=== PATIENT | male | born 1950 | race Caucasian/White ===

== ENCOUNTER 2023-08-14 09:32 | Outpatient (OUT) | payer MEDICARE, SELFPAY ==
[2023-08-14 10:58] LABS: Prostate Specific Antigen Dx <0.13 ng/mL (<=4.00)
== END 2023-08-14 09:33 | disposition home or self-care (01) ==
LOC: LAB 09:36
PROVIDERS: Urology; PCP Internal Medicine; Visit Provider Nurse Practitioner Women's Health
DX: Z85.46 Personal history of malignant neoplasm of prostate (principal)
CPT/HCPCS: 36415; 84153

== ENCOUNTER 2024-07-24 10:28 | Outpatient (OUT) | payer MEDICARE, SELFPAY ==
[2024-07-24 12:58] LABS: Prostate Specific Antigen Dx <0.13 ng/mL (<=4.00)
== END 2024-07-24 10:29 | disposition home or self-care (01) ==
LOC: LAB 10:32
PROVIDERS: PCP Internal Medicine; Visit Provider Urology
DX: Z85.46 Personal history of malignant neoplasm of prostate (principal)
CPT/HCPCS: 36415; 84153

== ENCOUNTER 2024-12-04 09:44 | Outpatient (OUT) | payer MEDICARE, OTHER, SELFPAY ==
--- OUTSIDE RECORDS SUMMARY | 2024-12-04 10:07 | XMS_ITS | CCD ---
Author Organization [facility] Care Team Providers Care Size Stamper Name Role Phone AMANUEL DIGGS Attending Unavailable RUDDY, DR ELVIS Rivera Admitting Unavailable RUDDY, DR ELVIS Rivera Attending Unavailable RANDAL, DR DELCID Primary Care Unavailable RUDDY, DR ELVIS Rivera Consulting Unavailable RICARDO JONES Primary Care Physician Herberth Tyson Attending Unavaila Herberth Gomes Admitting Unavaila Ricardo Orellana Primary Care Unavailable Elvis FOX Attending Unavailable Elvis FOX Attending Unavailable Ricardo Jones MD Unavailable Ricardo Jones MD Primary Care Provider RICARDO JONES Attending Unavailable RICARDO JONES Attending Unavailable Allergies Allergy Classification Reported Allergen(s) Allergy Type Date of Onset Reaction(s) Facility (4 sources) Penicillins; Translations: [penicillins] Drug allergy (disorder) 3 Unknown (qualifier value) [facility] Repository (3 sources) Sulfonamides (Antibiotic); Translations: [sulfa drugs] Drug allergy Weal (disorder), Cutaneous eruption (morphologic abnormality) [facility] (1 source) Penicillins Drug allergy (disorder) 8 [facility] Repository (6 sources) Penicillin G Drug Allergy 3 Unknown [facility] Work Phone: (4 sources) Sulfonamides (Antibiotic) Drug Allergy 4 [facility] Medications Current Medications Medication Drug Class(es) Dates Sig (Normalized) Sig (Original) [id number] 200 actuat albuterol 0.09 mg/actuat metered dose inhaler (8 sources) beta2-Adrenergic Agonist Start: 09-14-2022 take 2 puff(s) by inhalation every six hours albuterol HFA 90 mcg/act inhaler Inhale 2 puffs every 6 (six) hours if needed. 09/14/2022 Active Start: 04-06-2020 albuterol Refi lls(s) 0 Start Date: 04/06/20 Status: Ordered atorvastatin 40 mg oral tablet (10 sources) HMG-CoA Reductase Inhibitor Start: 04-22-2024 End: 11-19-2025 take 1 tablet by mouth once daily atorvastatin (Lipitor) 40 MG tablet Indications: Mixed hyperlipidemia (CMS/HCC) Take 1 tablet (40 mg) by mouth 1 (one) time each day at the same time 90 tablet 3 11/19/2024 11/19/2025 Active Start: 04-06-2020 Lipitor Refill s(s) 0 Start Date: 04/06/20 Status: Ordered Blood Glucose Monitoring Suppl (D-Care Glucometer) w/Device kit (6 sources) Blood Glucose Monitoring Suppl (D-Care Glucometer) w/Device kit TEST BLOOD SUGARS TWO TIMESA DAY bid (before breakfast and supper) for 90 days Active gabapentin 300 mg oral capsule (10 sources) Anti-epileptic Agent Start: 04-22-2024 End: 11-19-2025 take 1 capsule by mouth in the morning, then take 1 capsule by mouth in the evening, then take 1 capsule by mouth at bedtime gabapentin (Neurontin) 300 MG capsule Indications: 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 Take before meals. 90 tablet 3 11/19/2024 11/19/2025 Active Start: 04-06-2020 glimepiride 4 mg, Refills(s) 0 Start Date: 04/06/20 Status: Ordered losartan potassium 50 mg oral tablet (8 sources) Angiotensin 2 Receptor Jered Start: 04-22-2024 End: 11-19-2025 take 1 tablet by mouth in the morning losartan (Cozaar) 50 MG tablet Indications: Benign essential hypertension (CMS/HCC) Take 1 tablet (50 mg) by mouth in the morning and 1 tablet (50 mg) before bedtime. 180 tablet 3 11/19/2024 11/19/2025 Active 24 hr metoprolol succinate 25 mg extended release oral tablet (10 sources) beta-Adrenergic Jered Start: 04-22-2024 End: 11-19-2025 take 1 tablet by mouth once daily metoprolol succinate XL (Toprol-XL) 25 MG 24 hr tablet Indications: Supraventricular premature beats Take 1 tablet (25 mg) by mouth Daily 90 tablet 3 11/19/2024 11/19/2025 Active Start: 04-06-2020 Toprol-XL Refi lls(s) 0 Start Date: 04/06/20 Status: Ordered traMADol hydrochloride 50 mg oral tablet (6 sources) Opioid Agonist Start: 08-17-2024 End: 12-30-2024 take 1 tablet by mouth every six hours for pain traMADol (Ultram) 50 MG tablet Indications: Degeneration of intervertebral disc of lumbosacral region with discogenic back pain Take 1 tablet (50 mg) by mouth every 6 (six) hours if needed for severe pain 90 tablet 11/30/2024 12/30/2024 Active Start: 04-06-2020 tramadol 25 mg , Refills(s) 0 Start Date: 04/06/20 Status: Ordered Diovan (2 sources) Angiotensin 2 Receptor Jered Start: 04-06-2020 Diovan Refills(s) 0 Start Date: 04/06/20 Status: Ordered Completed/Discontinued Medications Medication Drug Class(es) Dates Sig (Normalized) Sig (Original) 14fr straight catheter (2 sources) Start: 08-24-2024 14fr straight catheter 14fr straight catheter, See Instructions, 30 EA, 3, Pt to CIC 2x/ wk., [facility] #72, Supply, 167, cm, 08/24/24 8:12:00 EDT, Height/Length Dosing, 96, kg, 08/24/24 8:12:00 EDT, Weight Dosing Start Date: 08/24/24 Status: Ordered Start: 04-15-2020 14fr straight catheter 14fr straight catheter, See Instructions, 30 EA, 3, Pt to CIC 2x/ wk., [employer] #72, Supply, 167, cm, 04/15/20 9:20:00 EDT, Height/Length Measured, 102.9, kg, 04/15/20 9:20:00 EDT, Weight Measured Start Date: 04/15/20 Status: Ordered Problems Active Problems Problem Classification Problem Date Documented Date Episodic/Chronic Asthma (6 sources) Mild intermittent asthma; Translations: [Mild intermittent asthma, uncomplicated] Onset: 05-02-2023 05-02-2023 Chronic Cancer of prostate (6 sources) Malignant tumor of prostate; Translations: [Malignant neoplasm of prostate] Onset: 05-02-2023 05-02-2023 Chronic Cancer of prostate (13 sources) Personal history of malignant neoplasm of prostate; Translations: [History of malignant neoplasm of prostate] Onset: 08-05-2020 Episodic Cardiac dysrhythmias (8 sources) Supraventricular premature beats; Translations: [Atrial premature depolarization] Onset: 05-02-2023 05-02-2023 Chronic Chronic kidney disease (6 sources) Chronic kidney disease stage 2; Translations: [Chronic kidney disease, stage 2 (mild)] Onset: 05-02-2023 05-02-2023 Chronic Diabetes mellitus with complications (8 sources) Type 2 diabetes mellitus; Translations: [Type 2 diabetes mellitus with diabetic polyneuropathy] Onset: 05-02-2023 05-02-2023 Chronic Disorders of lipid metabolism (10 sources) Hyperlipidemia; Translations: [Mixed hyperlipidemia] Onset: 05-02-2023 04-15-2020 Chronic Essential hypertension (16 sources) Hypertensive disorder; Translations: [Benign essential hypertension] Onset: 05-02-2023 04-06-2020 Chronic Genitourinary symptoms and ill-defined conditions (12 sources) Nocturia; Translations: [Retention of urine] Onset: 11-13-2024 04-06-2020 Episodic Hyperplasia of prostate (8 sources) Benign prostatic hypertrophy with outflow obstruction; Translations: [Benign prostatic hyperplasia with lower urinary tract symptoms] Onset: 04-13-2022 Chronic Immunizations and screening for infectious disease (4 sources) Patient encounter status; Translations: [Encounter for immunization] 11-19-2024 Episodic Other diseases of bladder and urethra (2 sources) Submeatal urethral stricture; Translations: [Unspecified urethral stricture, male, meatal] Onset: 04-13-2022 Episodic Other diseases of bladder and urethra (6 sources) Male urethral stricture; Translations: [Unspecified urethral stricture, male, meatal] Onset: 11-13-2024 04-06-2020 Episodic Other diseases of kidney and ureters (1 source) Urinary tract obstruction; Translations: [Other obstructive and reflux uropathy] Onset: 04-13-2022 Episodic Other screening for suspected conditions (not mental disorders or infectious disease) (2 sources) Elevated cholesterol/high density lipoprotein ratio 04-06-2020 Episodic Screening and history of mental health and substance abuse codes (6 sources) Ex-smoker; Translations: [Personal history of nicotine dependence] Onset: 11-13-2024 04-06-2020 Episodic Spondylosis; intervertebral disc disorders; other back problems (10 sources) Degeneration of intervertebral disc; Translations: [Degeneration of lumbosacral intervertebral disc] Onset: 05-02-2023 04-06-2020 Chronic Past or Other Problems Problem Classification Problem Date Documented Da te Episodic/Chronic Abdominal hernia (10 sources) Hiatal hernia; Translations: [Diaphragmatic hernia without obstruction or gangrene] Onset: 05-02-2023 04-06-2020 Episodic Mycoses (6 sources) Pityriasis versicolor; Translations: [Pityriasis versicolor] Onset: 05-02-2023 05-02-2023 Episodic Results Test Name Value Interpretation Reference Range Facility Laboratory - Hematology and Cell countson 11-19-2024 HbA1c (Bld) [Mass fraction] 6.1 % [facility] No Panel Informationon 11-19 Interpretation and review of laboratory results Normal [facility] tagWALLETcar e Ambulatory Visit Summaryon 0 08-24-2024 Ambulatory Visit Summary Ambulatory Visit Summary DAVID GIFFORD :1950 Visit Date:08/24/2024 Ambulatory Visit Instructions Your Diagnosis Personal history of prostate cancer BPH with urinary obstruction 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 Discharge Vitals Heart Rate (Peripheral) 68 Respiratory Rate 16 Blood Pressure 122/84 Height 167 cm Height 66 in Weight 96 kg Weight 211.2 lb BMI 34.42 What to do next Scheduled Follow-Up Appointments Saturday 8:45 AM EDT With: Elvis FOX MD Where: [facility] 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 Unchanged albuterol Contact prescribing physician if questions or concerns Unchanged atorvastatin (Lipitor) Contact prescribing physician if questions or concerns Unchanged gabapentin (Neurontin) 300 Milligram Contact prescribing physician if questions or concerns Unchanged glimepiride 4 Milligram Contact prescribing physician if questions or concerns Unchanged metoprolol (Toprol-XL) Contact prescribing physician if questions or concerns Unchanged tramadol 25 Milligram Contact prescribing physician if questions or concerns Unchanged valsartan (Diovan) Contact prescribing physician if questions or concerns Allergies sulfa drugs (Hives, Rash) penicillins (Unknown) Problems Ongoing - Any problem that you are currently receiving treatment for. 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 Degenerative disc disease Elevated cholesterol/high density lipoprotein ratio Hiatal hernia Hypertension Patient Survey You may receive a survey via text or e-mail asking about your office visit. Please share your experience with us by completing your survey. We appreciate your feedback and thank you for choosing us for your care. Education Materials Cancer Screening for Males A cancer screening is a test or exam that checks for cancer. Work with your health care provider to create a cancer screening schedule that protects your health. Who should have screening? All people who are male should be considered for screening of certain cancers, including colorectal cancer, prostate cancer, lung cancer, and skin cancer. Your health care provider may recommend screenings for other types of cancer if: ? You have had cancer before. ? You have a family member with cancer. ? You have genes that could increase the risk of cancer. ? You have risk factors for certain cancers, such as current or past use of tobacco products or being overweight. What are the benefits of screening? Cancer screening is done to look for cancer in the very early stages, before it spreads and becomes harder to treat and before you would start to notice symptoms. Finding cancer early improves the chances of successful treatment. It may save your life. When should I be screened for cancer? When you should be screened for cancer depends on: ? Your age. ? Your medical history and your family's medical history. ? Certain lifestyle factors, such as smoking or other use of tobacco products. ? Environmental exposure, such as to asbestos. How is screening done? Colorectal cancer Colorectal cancer screening looks for cancer or for growths called polyps that often form before cancer starts. Tests to look for cancer or polyps include: ? Colonoscopy or flexible sigmoidoscopy. For these procedures, a flexible tube with a small camera is inserted into the rectum. ? CT colonography. This test uses X-rays and a contrast dye to check the colon for polyps. Tests to look for cancer in the stool (feces) include: ? Guaiac-based fecal occult blood test (FOBT). This test can find blood in stool. It can be done at h (more content not included)... Normal [facility] Urology Office/Clinic Noteon 08-24-2024 Urology Office/Clinic Note Urology Office/Clinic Note Chief Complaint 1 year follow up with PSA HPI Staff 1 yr with PSA. Previous Dx: BPH with obstruction, hx of prostate ca, urethral meatal stricture (does CIC 2x/wk). Self caths with no issues. Pt needs a new Rx for 14 telugu straight caths written out for him to take to pharmacy. S/P TRUS/bx 08/15/10, brachytherapy. Cysto/UD 05/08/18. *No urologic meds. PSA: 03/13/22 - 0.23 08/14/23 - <0.13 07/24/24 - <0.13 Dysuria: denies Incomplete bladder emptying: denies Hematuria: denies visible blood Frequency: denies Urgency: denies Nocturia: once a night Stream: denies hesitancy, has a strong stream Leaking: denies Post void dripping: denies Wearing pads/ Depends: denies Urge incontinence: denies Stress incontinence: denies Incontinence without Sensory Awareness: denies Abdominal pain: denies Flank pain: denies Sexual complaints: _ History of Present Illness Tests reviewed: UA, PSA I have reviewed the previous health record information and history for this patient from Dr. Fox. I have reviewed and verified the staff HPI to be accurate for this encounter. Review of Systems PHQ Score Initial Depression Screen Score: 0 SCORE ROS - Provider Constitutional: denies weight loss, denies hot flashes. Eyes: denies eye problems. Gastrointestinal: denies nausea, denies vomiting. Cardiovascular: denies chest pain or angina. Integumentary: no dryness Musculoskeletal: denies musculoskeletal symptoms. ENMT: denies otolaryngeal symptoms. Respiratory: no shortness of breath. Heme/Lymph: denies easy bleeding tendency, denies easy bruising tendency. Psychiatric: no confusion, no anxiety. Genitourinary: See HPI. Physical Exam Vitals & Measurements HR: 68(Peripheral) RR: 16 BP: 122/84 HT: 66 in HT: 167 cm WT: 96 kg WT: 211.2 lb BMI: 34.42 General Appearance: alert, no distress, well nourished, well developed male. Prostate: very small, barely palpable, no nodules. Assessment/Plan 1. Personal history of prostate cancer (Z85.46: Personal history of malignant neoplasm of prostate) PSA: 03/03/21 - 0.29 03/13/22 - 0.23 08/14/23 - <0.13 07/24/24 - <0.13 S/p TRUS/bx 08/15/10, brachytherapy. PSA remains low and stable. Will cont to monitor. No longer following with radiation. MARTINA - very small, barely palpable, no nodules. Follow up 1 yr with PSA or sooner if needed. Pt understands and agrees with plan. 2. BPH with urinary obstruction (N40.1: Benign prostatic hyperplasia with lower urinary tract symptoms) IPSS not completed (5). Not taking any BPH meds. 3. 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 UA shows trace-intact blood and small leuks. Pt does CIC 2x/wk. No issues. 14 Fr straight refilled to [facility]. Overall patient is doing well. Twice daily straight cath working for him. Refill sent for 180 catheters to be utilized as cath twice per week. 3 refills. PSA level remains near 0 at 0.13 and stable status post prostate brachytherapy. MARTINA is as noted. Follow-up 1 year. No changes Follow-up With When Contact Information RUDDY HUTCHINSON, Elvis Rivera, URL [address] [address]- Additional Instructions: 1 yr with PSA Patient Education Cancer Screening for Males I, Preethi Graham, personally scribed for Dr. Fox on 08/24/2024 08:37:04. . Documentation recorded by the scribe, Preethi Graham, accurately reflects the services(s) I performed and decisions made by me. Authenticated by Dr. Fox on 08/24/2024 08:38:13. Portions of this record may have been created with voice recognition artificial intelligence software, specifically [email or web address], [employer] and or [email or web address]. Substitutions may have occurred due to the inherent limitations of voice recognition and artificial intelligence software. 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 Medications 14fr straight catheter, See Instructions, 3 refills albuterol Diovan glimepiride, 4 mg Lipitor Neurontin, 300 mg Toprol-XL tramadol, 25 mg Allergies sulfa drugs (Hives, Rash) penicillins (Unknown) Social History Alcohol - Denies Alcohol Use, 04/15/2020 Tobacco quit 15 years ago Tobacco Use:. Never Smokeless Tobacco Use:. Cigarettes, 08/24/2024 Family History Congenita (more content not included)... Normal [facility] Comment on above: Result Comment: Elec tronically Signed By: Elvis FOX MD\.br\Date and Time Signed: 08/24/24 08:39 EDT\.br\Electronically Co-Signed By: Preethi Graham\.br\Date and Time Co-Signed: 08/24/24 08:37 EDT MHPT PSA, DIAGNOSTICon 07-24 PROSTATE SPECIFIC ANTIGEN DX <0.13 NINF - 4.00 ng/mL [facility] e Vital Signs Date Time Vital Sign Value Performing Clinician Facility 11-19-2024 09:08-0500 Body height 166.4 cm Ricardo Jones MD Work Phone: [facility] 11-19-2024 09:08-0500 Body mass index (BMI) [Ratio] 34.25 kg/m2 Ricardo Jones MD Work Phone: [facility] 11-19-2024 09:08-0500 Body weight 94.8 kg Ricardo Jones MD Work Phone: [facility] 11-19-2024 09:08-0500 Diastolic blood pressure 82 mm[Hg] Ricardo Jones MD Work Phone: [facility] 11-19-2024 09:08-0500 Heart rate 81 /min Ricardo Jones MD Work Phone: [facility] 11-19-2024 09:08-0500 SaO2% (BldA) [Mass fraction] 96 % Ricardo Jones MD Work Phone: [facility] 11-19-2024 09:08-0500 Systolic blood pressure 132 mm[Hg] Ricardo Jones MD Work Phone: [facility] 08-24-2024 08:08-0400 Blood Pressure Location Elvis FOX [facility] 08-24-2024 08:08-0400 Diastolic blood pressure 84 mm[Hg] Elvis FOX [facility] 08-24-2024 08:08-0400 Heart rate 68 /min Elvis FOX [facility] 08-24-2024 08:08-0400 Respiratory rate 16 /min Elvis FOX [facility] 08-24-2024 08:08-0400 Systolic blood pressure 122 mm[Hg] Elvis FOX [facility] 04-13-2022 11:13-0400 Blood Pressure Location Elvis FOX [facility] 04-13-2022 11:13-0400 Diastolic blood pressure 89 mm[Hg] Elvis FOX [facility] 04-13-2022 11:13-0400 Heart rate 82 /min Elvis FOX [facility] 04-13-2022 11:13-0400 Systolic blood pressure 142 mm[Hg] Elvis FOX [facility] Encounters Encounter Date Encounter Type Care Provider Facility Start: 08-23-2025 ambulatory Elvis FOX Facility :[facility]: 11-30-2024 End: 11-30-2024 Refill Katrina Saturday [employer] Work Phone: [facility] Comment on above: Degeneration of inte rvertebral disc of lumbosacral region with discogenic back pain (Primary Dx) Start: 11-19-2024 End: 11-19-2024 Bamboo flowsheet Ricardo Jones MD Work Phone: [facility] Start: 11-19-2024 End: 11-19-2024 Bamboo flowsheet Ricardo Jones MD Work Phone: [facility] Start: 11-19-2024 End: 11-19-2024 Assay of hemosiderin, quant Ricardo Jones MD Work Phone: [facility] Work Phone: Start: 11-19-2024 End: 11-19-2024 Patient encounter procedure Ricardo Jones MD Work Phone: [facility] Comment on above: Routine general medi john examination at health care facility (Primary Dx); ACP (advance care planning); 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); Mixed hyperlipidemia (CMS/HCC); Benign essential hypertension (CMS/HCC); Supraventricular premature beats; Encounter for vaccination Start: 11-19-2024 End: 11-19-2024 ambulatory RICARDO JONES Not Available Start: 08-24-2024 End: 08-24-2024 ambulatory Elvis FOX Facility:[facility] Start: 08-24-2024 End: 08-24-2024 Patient encounter procedure Elvis FOX [facility] Start: 08-17-2024 End: 08-17-2024 Refill Katrina Saturday [employer] Work Phone: [facility] Comment on above: Degeneration of lumb ar or lumbosacral intervertebral disc (Primary Dx) Start: 07-24-2024 End: 07-24-2024 [facility] Result Encounter Generic External Data Provider [facility] Unsolicited Start: 07-24-2024 End: 07-24-2024 [facility] Result Encounter Generic External Data Provider [facility] Unsolicited Start: 04-22-2024 End: 04-22-2024 ambulatory RICARDO JONES Not Available Start: 04-13-2022 End: 04-13-2022 Patient encounter procedure Elvis FOX [facility] Start: 03-13-2022 End: 03-14-[address] ELVIS FOX Facility: Start: 08-05-2020 End: 08-06-2020 ambulatory Herberth Charlessaige Facility:[facility] Start: 03-05-2019 Patient encounter procedure AMANUEL DIGGS Facility:[id number] Procedures Date Procedure Procedure Detail Performing Clinician Start: 11-19-2024 Hemoglobin glycosylated a1c Ricardo Jones MD Work Phone: Start: 07-24-2024 MHPT PSA, DIAGNOSTIC Ge neric External Data Provider Start: 03-13-[address] MODESTA FOX Comment on above: Performed By: #### P SAD #### [facility] [address] [place] [address] Dr. Deepa Barros Start: 05-08-2018 Cystourethroscopy wi dilation of urethral stricture Elvis FOX Start: 07-25-2015 Colonoscopy Generic Pr ovider Start: 08-15-2010 Ultrasonography guid ed transrectal cryoablation of prostate Elvis FOX Brachytherapy Elvis FOX Esophageal hiatus he rnia repair Elvis FOX Plan of Treatment Date Care Activity Detail Author Start: 06-11-2026 Glaucoma screening Diabetes: R etinopathy Screening [facility] Start: 07-25-2025 Screening for malign ant neoplasm of colon [facility] Start: 05-20-2025 End: 05-20-2025 Patient encounter procedure 05/20/2025 8:30 AM EDT Office Visit [facility] [address] [place] [id number] Ricardo Jones MD [address] [facility] [address] [place] [address] [facility] Start: 02-17-2025 Hemoglobin A1c measurement Diabetes: Hemoglobin A1C [facility] Start: 11-19-2024 End: 11-19-2025 Comprehensive metabolic 2000 panel - Serum or Plasma Comprehensive metabolic panel Lab Routine 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) Benign essential hypertension (CMS/HCC) Expected: 11/19/2024 (Approximate), Expires: 11/19/2025 [facility] Work Phone: Comment on above: Expected: 11/19/2024 (Approximate), Expires: 11/19/2025 Start: 11-19-2024 End: 11-19-2025 Lipid 1996 panel - Serum or Plasma Lipid panel Lab Routine Mixed hyperlipidemia (CMS/HCC) Expected: 11/19/2024 (Approximate), Expires: 11/19/2025 [facility] Comment on above: Expected: 11/19/2024 (Approximate), Expires: 11/19/2025 Start: 11-19-2024 End: 11-19-2025 TSH W/REFLEX TO FT4 TSH W/REFLEX TO FT4 Lab Routine 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) Supraventricular premature beats Expected: 11/19/2024 (Approximate), Expires: 11/19/2025 [facility] Comment on above: Expected: 11/19/2024 (Approximate), Expires: 11/19/2025 Start: 11-19-2024 End: 11-19-2024 Patient encounter procedure 11/19/2024 9:00 AM EST Office Visit [facility] [address] [facility] [address] [place] [phone] Ricardo Jones MD [address] [facility] [address] [place] [address] Arrived [facility] Comment on above: Arrived Start: 10-23-2024 Urine screening for protein Diabetes: Urine Protein Screening [facility] Start: 10-16-2024 End: 10-16-2024 Patient encounter procedure 10/16/2024 8:30 AM EST Office Visit [facility] [address] [facility] [address] [place] [address] Ricardo Jones MD [address] [facility] [address] [place] [address] [facility] Start: 07-26-2024 Influenza vaccination Influenza Vacc ine (#1) [facility] Start: 07-23-2024 Hemoglobin A1c measurement Diabetes: Hemoglobin A1C [facility] Start: 1950 Screening for malign ant neoplasm of colon [facility] Microalbumin/Creatin ine panel in random Urine Microalbumin / creatinine urine ratio Lab Routine 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) Ordered: 11/19/2024 [facility] Comment on above: Ordered: 11/19/2024 Immunizations Immunization Date Immunization Notes Care Provider Fa cility 11-19-2024 Influenza, High-dose Seasonal, Quadrivalent, Preservative Free Ricardo Jones MD Work Phone: [facility] 10-23-2023 influenza virus vacc ine, unspecified formulation Generic Provider [facility] 10-23-2023 Influenza, High-dose Seasonal, Quadrivalent, Preservative Free Generic Provider [facility] 12-11-2022 SARS-CoV-2 (COVID-19 ) [id number] Elvischastity FOX [facility] 09-14-2022 influenza virus vacc ine, unspecified formulation Elvis RUDDY [facility] 09-14-2022 Influenza, High-dose Seasonal, Quadrivalent, Preservative Free Generic Provider [facility] 09-21-2021 influenza virus vacc ine, unspecified formulation Elvis FOX [facility] 09-21-2021 influenza, high dose seasonal, preservative-free Generic Provider [facility] 08-25-2021 SARS-CoV-2 (COVID-19 ) mRNA BNT-162b2 vax Elvis FOX Envia Lá [facility] Comment on above: Result Comment: 2023: [id number] 01-27-2021 SARS-CoV-2 (COVID-19 ) mRNA-1273 vaccine Elvis [employer] [facility] 01-06-2021 SARS-CoV-2 (COVID-19 ) mRNA-1273 vaccine Elvis [employer] [facility] 10-04-2020 influenza virus vacc ine, unspecified formulation Elvis [employer] [facility] 10-04-2020 Influenza, High-dose Seasonal, Quadrivalent, Preservative Free Generic Provider [facility] 08-31-2020 pneumococcal conjuga te vaccine, 13 valent Generic Provider [facility] 08-31-2020 zoster vaccine recombinant Generic Provider [facility] 12-26-2019 influenza virus vacc ine, unspecified formulation Elvis [employer] [facility] 09-08-2018 influenza virus vacc ine, unspecified formulation Elvis [employer] [facility] 08-11-2018 pneumococcal polysaccharide vaccine, 23 valent Generic Provider [facility] Payers Date Payer Category Payer Private Health Insurance [employer] [id number] 2021 Unknown [employer] [id number] 2021-Present [address] [place] [address] [id number] 2017 Self-pay 2016 Medicare [id number] 1959 Medicare [id number] 1959 Unknown [id number] 1959 Unknown [id number] 1951 Unknown [id number] 1951 Unknown [id number] 1951 Unknown [id number] 1951 Unknown [id number] 1951 Unknown [id number] 1951 Unknown [id number] Unknown [id number] Social History Date Type Detail Facility Start: 03-03-2021 Tobacco smoking status Ex-smoker (fi nding) [facility] Start: 08-19-2023 End: 11-19-2024 Sex Assigned At Male [facility] Start: 08-24-2024 Tobacco smoking status Never [facility] Start: 05-02-2023 Tobacco smoking stat us INIS Never smoked tobacco [facility] Start: 05-02-2023 Tobacco use and exposure Smokeless tobacco non-user [facility] Start: 04-22-2024 End: 11-19-2024 Alcoholic beverage intake Lifetime non-drinker (finding) [facility] Start: 08-19-2023 End: 11-19-2024 History of Social function [facility] Within the last year , have you been afraid of your partner or ex-partner? No [facility] Are you now , , , , never or living with a partner? [facility] How often to you hav e a drink containing alcohol? Never [facility] Do you feel stress - tense, restless, nervous, or anxious, or unable to sleep at night because your mind is troubled all the time - these days [OSQ] Not at all [facility] (I/We) worried wheth er (my/our) food would run out before (I/we) got money to buy more. Never true [facility] Start: 1950 Sex assigned at Not on file [facility] Functional Status Date Assessment Result Facility 08-24-2024 Functional Status N/A [facility] Clinical Notes 04-13-2022 to 11-30-2024 Telephone Encounter - DEJON Guallpa - 11/30/2024 11:27 AM ESTTelephone Encounter - DEJON Guallpa - 11/30/2024 11:27 AM Tori Jones MD - 11/19/2024 9:00 AM EST Note Date & Type Note Facility 11-30-2024 Telephone encounter Note OAR[facility] reviewed, Rx sent into patient's pharmacy. [facility] 11-30-2024 Miscellaneous Notes OARRS reviewed, Rx sent into patient's pharmacy. documented in this encounter [facility] 11-19-2024 History of Presen t illness Narrative Images from the original note were not included. Subjective : Chief Complaint: David Gifford is an 74 y.o. male here for an annual wellness visit. I have reviewed and reconciled the history and medication list with the patient today. Current Outpatient Medications Medication Sig Dispense Refill albuterol HFA 90 mcg/act inhaler Inhale 2 puffs every 6 (six) hours if needed. atorvastatin (Lipitor) 40 MG tablet Take 1 tablet (40 mg) by mouth 1 (one) time each day at the same time 90 tablet 3 Blood Glucose Monitoring Suppl ([employer] Glucometer) w/Device kit TEST BLOOD SUGARS TWO TIMESA DAY bid (before breakfast and supper) for 90 days gabapentin (Neurontin) 300 MG capsule Take 1 capsule (300 mg) by mouth in the morning and 1 capsule (300 mg) in the evening and 1 capsule (300 mg) before bedtime. 270 capsule 3 glimepiride (Amaryl) 4 MG tablet Take 1 tablet (4 mg) by mouth in the morning. Take before meals. 90 tablet 3 losartan (Cozaar) 50 MG tablet Take 1 tablet (50 mg) by mouth in the morning and 1 tablet (50 mg) before bedtime. 180 tablet 3 metoprolol succinate XL (Toprol-XL) 25 MG 24 hr tablet Take 1 tablet (25 mg) by mouth Daily 90 tablet 3 No current facility-administered medications for this visit. Review of Systems List of current healthcare providers: Patient Care Team: Ricardo Jones MD as PCP - General (Internal Medicine) Ricardo Jones MD as PCP - ACO [employer] Medicare Annual Visit Over the past 2 weeks, how often have you been bothered by any of the following problems? Little interest or pleasure in doing things: Not at all Feeling down, depressed, or hopeless: Not at all Patient Health Questionnaire-2 Score: 0 [place] Fall Risk History of Falling, Immediate or Within 3 Months: No Health Risk Assessment Form Do you need help eating, bathing, using the toilet, dressing, or getting around your home?: No Can you prepare your own meals?: Yes Can you do your own housework without help?: Yes Can you shop for groceries or clothes without help?: Yes Do you exercise for about 20 minutes 3 or more days a week?: Yes How confident are you that you can control and manage most of your health problems?: Very confident Can you mange your money, credit cards and accounts, pay bills and taxes?: Yes Vision Screening: Yes, no gross abnormalities Hearing Screening: Yes, no gross abnormalities Cognitive Screening Self Assessment: No overt cognitive deficiency is apparent by direct observation Three Word Registration: Hal, Dat, Finger Clock Drawing: Normal Clock - 2 Three Word Recall: All 3 words correct - 3 Total Score (0-5 Points): 5 Pain Assessment Pain Score: 0 - No pain Advance Care Planning Do you have a living will?: Yes 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 Physical Exam Constitutional: General: He is not in acute distress. Appearance: He is normal weight. He is not ill-appearing. HENT: Head: Normocephalic. Cardiovascular: Rate and Rhythm: Normal rate and regular rhythm. Heart sounds: Normal heart sounds. No murmur heard. Pulmonary: Effort: Pulmonary effort is normal. Breath sounds: Normal breath sounds. Musculoskeletal: General: No swelling. Right lower leg: No edema. Left lower leg: No edema. Neurological: Mental Status: He is alert. Psychiatric: Mood and Affect: Mood normal. Thought Content: Thought content normal. Judgment: Judgment normal. Office Visit on 11/19/2024 Component Date Value Ref Range Status Hemoglobin A1C 11/19/2024 6.1 Final Assessment/Plan : The following health maintenance schedule was reviewed with the patient and provided in printed form in the after visit summary: Health Maintenance Topic Date Due Influenza Vaccine (1) 07/26/2024 Diabetes: Urine Protein Screening 10/23/2024 Colorectal Cancer Screening 07/25/2025 Diabetes: Hemoglobin A1C 02/17/2025 Diabetes: Retinopathy Screening 06/11/2026 Pneumococcal Vaccine: 65+ Years Completed Advance Care Planning Assessment/Plan Diagnoses and all orders for this visit: Routine general medical examination at health care facility ACP (advance care planning) 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 - glimepiride (Amaryl) 4 MG tablet; Take 1 tablet (4 mg) by mouth in the morning. Take before meals. - Comprehensive metabolic panel; Future - Microalbumin / creatinine urine ratio - TSH W/REFLEX TO FT4; Future Mixed hyperlipidemia (CMS/HCC) - atorvastatin (Lipitor) 40 MG tablet; Take 1 tablet (40 mg) by mouth 1 (one) time each day at the same time - Lipid panel; Future Benign essential hypertension (CMS/HCC) - losartan (Cozaar) 50 MG tablet; Take 1 tablet (50 mg) by mouth in the morning and 1 tablet (50 mg) before bedtime. - Comprehensive metabolic panel; Future Supraventricular premature beats - metoprolol succinate XL (Toprol-XL) 25 MG 24 hr tablet; Take 1 tablet (25 mg) by mouth Daily - TSH W/REFLEX TO FT4; Future Encounter for vaccination - Influenza, high-dose seasonal, quadrivalent, PF (DYG940) (Fluzone High Dose Quad North 0.7mL dose) Follow up in about 6 months (around 05/20/2025) for DM- A1C. Orders Placed This Encounter Procedures Influenza, high-dose seasonal, quadrivalent, PF (WNY311) (Fluzone High Dose Quad North 0.7mL dose) POCT Glycated hemoglobin, total Electronically signed by Ricardo Jones MD on November 19, 2024 documented in this encounter [facility] 08-24-2024 Hospital Discharg e instructions Patient Education 08/24/2024 07:59:58 Cancer Screening for Males Cancer Screening for Males A cancer screening is a test or exam that checks for cancer. Work with your health care provider to create a cancer screening schedule that protects your health. Who should have screening? All people who are male should be considered for screening of certain cancers, including colorectal cancer, prostate cancer, lung cancer, and skin cancer. Your health care provider may recommend screenings for other types of cancer if: You have had cancer before. You have a family member with cancer. You have genes that could increase the risk of cancer. You have risk factors for certain cancers, such as current or past use of tobacco products or being overweight. What are the benefits of screening? Cancer screening is done to look for cancer in the very early stages, before it spreads and becomes harder to treat and before you would start to notice symptoms. Finding cancer early improves the chances of successful treatment. It may save your life. When should I be screened for cancer? When you should be screened for cancer depends on: Your age. Your medical history and your family's medical history. Certain lifestyle factors, such as smoking or other use of tobacco products. Environmental exposure, such as to asbestos. How is screening done? Colorectal cancer Colorectal cancer screening looks for cancer or for growths called polyps that often form before cancer starts. Tests to look for cancer or polyps include: Colonoscopy or flexible sigmoidoscopy. For these procedures, a flexible tube with a small camera is inserted into the rectum. CT colonography. This test uses X-rays and a contrast dye to check the colon for polyps. Tests to look for cancer in the stool (feces) include: Guaiac-based fecal occult blood test (FOBT). This test can find blood in stool. It can be done at home with a kit. Fecal immunochemical test (FIT). This test can find blood in stool. For this test, you will need to collect stool samples at home. Stool DNA test. This test looks for blood in stool and any changes in DNA that can lead to colon cancer. For this test, you will need to collect a stool sample at home and send it to a lab. All adults should have screenings starting at 45 years old and continuing through 75 years old. For males 76 85 years old, the decision to be screened should be based on a person's preferences, life expectancy, overall health, and prior screening history. Your health care provider may recommend screening before 45 years old. You will have tests every 1 10 years, depending on your results and the type of screening test. People at increased risk should start screening at an earlier age. Talk with your health care provider about which screening test is right for you and how often you should be screened. Prostate cancer Prostate cancer screening is done with blood tests and a digital rectal exam. During this exam, a health care provider uses a gloved finger to check prostate size. You may need to be screened for prostate cancer if: You have risk factors for prostate cancer, such as being an person or having a close family member with prostate cancer. You have had gene changes or a genetic condition that was passed on to you from a parent (inherited). These gene changes or genetic conditions include BRCA1 or BRCA2 gene mutations or Schwarz syndrome. You have symptoms of prostate cancer, such as problems urinating or problems getting or keeping an erection (erectile dysfunction). When you have been screened for prostate cancer, future screening may be recommended based on the results of your blood tests. Prostate cancer screening for males with average risk may start at 50 years old. Males with risk factors may need to be screened earlier, at 40 45 years old. Talk with your health care provider about whether screening is right for you and, if so, how often you should be screened. Lung cancer Lung cancer screening is done with a CT scan that looks for abnormal changes in the lungs. Discuss lung cancer screening with your health care provider if you are 50 80 years old and if any of the following apply to you: You currently smoke. You used to smoke heavily. You have a smoking history of 1 pack of cigarettes a day for 20 years or 2 packs a day for 10 years. You may need to be screened every year if you smoke heavily or if you used to smoke. Skin cancer Skin cancer screening is done by checking the skin for unusual moles or spots and any changes in existing moles. Your health care provider should check your skin for signs of skin cancer at every physical exam. You should check your skin every month and tell your health care provider right away if anything looks unusual. Males with a iowqdh-folq-upiizr risk for skin cancer may want to see a air traffic control specialist center ([facility]) for an annual body check. Where to find more information [place] [employer]: cancer.org Centers for Disease Control and Prevention: cdc.gov National Cancer Newborn: cancer.gov Contact a health care provider if: You have concerns about any signs or symptoms of cancer. These may include: ?Skin problems. You may have: ?Moles of an unusual shape or color. ?Changes in existing moles. ?A sore on your skin that does not heal. ?Tiredness (fatigue) that does not go away. ?Losing weight without trying. ?Blood in your urine or stool. ?Problems with urination. You may have: ?Changes in urination habits. ?Painful urination. ?Painful ejaculation. ?Problems with coughing or breathing. These may include: ?Coughing or trouble breathing that does not go away. ?Coughing up blood. ?Frequent pain or cramping in your abdomen. This information is not intended to replace advice given to you by your health care provider. Make sure you discuss any questions you have with your health care provider. Document Revised: 11/19/2023 Document Reviewed: 06/03/2023 [employer] Patient Education 2023 New Screens. Follow Up Care 08/19/2023 09:16:04 With:RUDDY HUTCHINSON, Elvis Rivera, URL Address: [facility] [address] [place], [place] [id number]- When: Unknown [facility] 08-24-2024 Note Patient Education Oncology Cancer Screening for Males A cancer screening is a test or exam that checks for cancer. Work with your health care provider to create a cancer screening schedule that protects your health. Who should have screening? All people who are male should be considered for screening of certain cancers, including colorectal cancer, prostate cancer, lung cancer, and skin cancer. Your health care provider may recommend screenings for other types of cancer if: ? You have had cancer before. ? You have a family member with cancer. ? You have genes that could increase the risk of cancer. ? You have risk factors for certain cancers, such as current or past use of tobacco products or being overweight. What are the benefits of screening? Cancer screening is done to look for cancer in the very early stages, before it spreads and becomes harder to treat and before you would start to notice symptoms. Finding cancer early improves the chances of successful treatment. It may save your life. When should I be screened for cancer? When you should be screened for cancer depends on: ? Your age. ? Your medical history and your family's medical history. ? Certain lifestyle factors, such as smoking or other use of tobacco products. ? Environmental exposure, such as to asbestos. How is screening done? Colorectal cancer Colorectal cancer screening looks for cancer or for growths called polyps that often form before cancer starts. Tests to look for cancer or polyps include: ? Colonoscopy or flexible sigmoidoscopy. For these procedures, a flexible tube with a small camera is inserted into the rectum. ? CT colonography. This test uses X-rays and a contrast dye to check the colon for polyps. Tests to look for cancer in the stool (feces) include: ? Guaiac-based fecal occult blood test (FOBT). This test can find blood in stool. It can be done at home with a kit. ? Fecal immunochemical test (FIT). This test can find blood in stool. For this test, you will need to collect stool samples at home. ? Stool DNA test. This test looks for blood in stool and any changes in DNA that can lead to colon cancer. For this test, you will need to collect a stool sample at home and send it to a lab. All adults should have screenings starting at 45 years old and continuing through 75 years old. For males 76?85 years old, the decision to be screened should be based on a person's preferences, life expectancy, overall health, and prior screening history. Your health care provider may recommend screening before 45 years old. You will have tests every 1?10 years, depending on your results and the type of screening test. People at increased risk should start screening at an earlier age. Talk with your health care provider about which screening test is right for you and how often you should be screened. Prostate cancer Prostate cancer screening is done with blood tests and a digital rectal exam. During this exam, a health care provider uses a gloved finger to check prostate size. You may need to be screened for prostate cancer if: ? You have risk factors for prostate cancer, such as being an person or having a close family member with prostate cancer. ? You have had gene changes or a genetic condition that was passed on to you from a parent (inherited). These gene changes or genetic conditions include BRCA1 or BRCA2 gene mutations or Schwarz syndrome. ? You have symptoms of prostate cancer, such as problems urinating or problems getting or keeping an erection (erectile dysfunction). When you have been screened for prostate cancer, future screening may be recommended based on the results of your blood tests. Prostate cancer screening for males with average risk may start at 50 years old. Males with risk factors may need to be screened earlier, at 40?45 years old. Talk with your health care provider about whether screening is right for you and, if so, how often you should be screened. Lung cancer Lung cancer screening is done with a CT scan that looks for abnormal changes in the lungs. Discuss lung cancer screening with your health care provider if you are 50?80 years old and if any of the following apply to you: ? You currently smoke. ? You used to smoke heavily. ? You have a smoking history of 1 pack of cigarettes a day for 20 years or 2 packs a day for 10 years. You may need to be screened every year if you smoke heavily or if you used to smoke. Skin cancer Skin cancer screening is done by checking the skin for unusual moles or spots and any changes in existing moles. Your health care provider should check your skin for signs of skin cancer at every physical exam. You should check your skin every month and tell your health care provider right away if anything looks unusual. Males with a klqlkc-xcdp-lgjvfn risk for skin cancer may want to see a air traffic control specialist center (deckhand [facility] boat) for an annual body check. Where (more content not included)... [facility] 04-13-2022 Hospital Discharg e instructions Patient Education 04/13/2022 11:25:29 Prostate Cancer Prostate Cancer The prostate is a walnut-sized gland that is involved in the production of semen. It is located below a man's bladder, in front of the rectum. Prostate cancer is the abnormal growth of cells in the prostate gland. What are the causes? The exact cause of this condition is not known. What increases the risk? This condition is more likely to develop in men who: Are older than age 65. Are -Panamanian. Are obese. Have a family history of prostate cancer. Have a family history of breast cancer. What are the signs or symptoms? Symptoms of this condition include: A need to urinate often. Weak or interrupted flow of urine. Trouble starting or stopping urination. Inability to urinate. Pain or burning during urination. Painful ejaculation. Blood in urine or semen. Persistent pain or discomfort in the lower back, lower abdomen, hips, or upper thighs. Trouble getting an erection. Trouble emptying the bladder all the way. How is this diagnosed? This condition can be diagnosed with: A digital rectal exam. For this exam, a health care provider inserts a gloved finger into the rectum to feel the prostate gland. A blood test called a prostate-specific antigen (PSA) test. An imaging test called transrectal ultrasonography. A procedure in which a sample of tissue is taken from the prostate and examined under a microscope (prostate biopsy). Once the condition is diagnosed, tests will be done to determine how far the cancer has spread. This is called staging the cancer. Staging may involve imaging tests, such as: A bone scan. A CT scan. A PET scan. An MRI. The stages of prostate cancer are as follows: Stage I. At this stage, the cancer is found in the prostate only. The cancer is not visible on imaging tests and it is usually found by accident, such as during a prostate surgery. Stage II. At this stage, the cancer is more advanced than it is in stage I, but the cancer has not spread outside the prostate. Stage III. At this stage, the cancer has spread beyond the outer layer of the prostate to nearby tissues. The cancer may be found in the seminal vesicles, which are near the bladder and the prostate. Stage IV. At this stage, the cancer has spread other parts of the body, such as the lymph nodes, bones, bladder, rectum, liver, or lungs. How is this treated? Treatment for this condition depends on several factors, including the stage of the cancer, your age, personal preferences, and your overall health. Talk with your health care provider about treatment options that are recommended for you. Common treatments include: Observation for early stage prostate cancer (active surveillance). This involves having exams, blood tests, and in some cases, more biopsies. For some men, this is the only treatment needed. Surgery. Types of surgeries include: ?Open surgery. In this surgery, a larger incision is made to remove the prostate. ?A laparoscopic prostatectomy. This is a surgery to remove the prostate and lymph nodes through several, small incisions. It is often referred to as a minimally invasive surgery. ?A robotic prostatectomy. This is a surgery to remove the prostate and lymph nodes with the help of a robotic arm that is controlled by a computer. ?Orchiectomy. This is a surgery to remove the testicles. ?Cryosurgery. This is a surgery to freeze and destroy cancer cells. Radiation treatment. Types of radiation treatment include: ?External beam radiation. This type aims beams of radiation from outside the body at the prostate to destroy cancerous cells. ?Brachytherapy. This type uses radioactive needles, seeds, wires, or tubes that are implanted into the prostate gland. Like external beam radiation, brachytherapy destroys cancerous cells. An advantage is that this type of radiation limits the damage to surrounding tissue and has fewer side effects. High-intensity, focused ultrasonography. This treatment destroys cancer cells by delivering high-energy ultrasound waves to the cancerous cells. Chemotherapy medicines. This treatment kills cancer cells or stops them from multiplying. Hormone treatment. This treatment involves taking medicines that act on one of the male hormones (testosterone): ?By stopping your body from producing testosterone. ?By blocking testosterone from reaching cancer cells. Follow these instructions at home: Take vdwu-nnr-qndmikc and prescription medicines only as told by your health care provider. Maintain a healthy diet. Get plenty of sleep. Consider joining a support group for men who have prostate cancer. Meeting with a support group may help you learn to cope with the stress of having cancer. Keep all follow-up visits as told by your health care provider. This is important. If you have to go to the hospital, notify your cancer specialist (oncologist). Treatment for prostate cancer may affect sexual function. Continue to have intimate moments with your partner. This may include touching, holding, hugging, and caressing. Contact a health care provider if: You have trouble urinating. You have blood in your urine. You have pain in your hips, back, or chest. Get help right away if: You have weakness or numbness in your legs. You cannot control urination or your bowel movements (incontinence). You have trouble breathing. You have sudden chest pain. You have chills or a fever. Summary The prostate is a walnut-sized gland that is involved in the production of semen. It is located below a man's bladder, in front of the rectum. Prostate cancer is the abnormal growth of cells in the prostate gland. Treatment for this condition depends on several factors, including the stage of the cancer, your age, personal preferences, and your overall health. Talk with your health care provider about treatment options that are recommended for you. Consider joining a support group for men who have prostate cancer. Meeting with a support group may help you learn to cope with the stress of having cancer. This information is not intended to replace advice given to you by your health care provider. Make sure you discuss any questions you have with your health care provider. Document Released: 11/11/2006 Document Revised: 10/24/2018 Document Reviewed: 07/22/2017 [employer] Patient Education 2020 New Screens. Follow Up Care 03/03/2021 09:30:24 With:Elvis FOX MD, URL Address: [address] [place], [place] [id number]- When:04/13/2023 Comments:with psa [facility] Evaluation + Plan note Future Appointments Appointment Date:05/31/2023 08:45:00 AM Scheduled Provider:Elvis FOX MD [facility] Appointment Type:URO Office Visit Diagnostic Tests PendingPSA Free & Total 04/13/22 [facility] Evaluation + Plan note Future Appointments Appointment Date:08/23/2025 08:45:00 AM Scheduled Provider:Elvis FOX MD Location[facility] Appointment Type:URO Office Visit Diagnostic Tests PendingPSA Total 08/24/24 [facility] Evaluation note Diagnosis Degeneration of lumbar or lumbosacral intervertebral disc- Primary [facility] Diagnosis Routine general medical examination at health care facility- Primary Routine general medical examination at a health care facility ACP (advance care planning) Other specified counseling 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) Mixed hyperlipidemia (CMS/HCC) Mixed hyperlipidemia Benign essential hypertension (CMS/HCC) Essential hypertension, benign Supraventricular premature beats Encounter for vaccination [facility] Diagnosis Degeneration of intervertebral disc of lumbosacral region with discogenic back pain- Primary [facility] Narrative No data available for this section [facility] Progress note No data available for this section [facility] Summary Purpose Family History No Family History Records FoundNo Family History Records FoundNo Family History Records Found No data available for this section No Family History Records FoundNo Family History Records Found Advance Directives No Advanced Directives Records FoundNo Advanced Directives Records FoundNo Advanced Directives Records FoundNo Advanced Directives Records FoundNo Advanced Directives Records Found Additional Source Comments (unrecognized sect ion and content) No Status Records FoundNo Status Records FoundNo Status Records FoundNo Status Records FoundNo Status Records Found INFORMATION SOURCE (unrecogn ized section and content) DATE CREATED AUTHOR 03/19/2019 [facility] DATE CREATED AUTHOR AUTHOR'S ORGANIZ ATION 03/17/2022 [facility] DATE CREATED AUTHOR AUTHOR'S ORGANIZ ATION 07/27/2023 [facility] DATE CREATED AUTHOR AUTHOR'S ORGANIZ ATION 08/26/2024 [facility] DATE CREATED AUTHOR AUTHOR'S ORGANIZ ATION 11/20/2024 [facility] EPIC Patient Care team informatio n (unrecognized section and content) Size Stamper Relationship Specialty Start Date End Date Ricardo Jones MD [address] [facility] [address] [place] [address] PCP - ACO Reach 04/18/23 Ricardo Jones MD [address] [facility] [address] [place] [address] PCP - General Internal Medicine 05/13/23 Size Stamper Relationship Specialty Start Date End Date Ricardo Jones MD [address] [facility] [address] [place] [address] PCP - ACO Reach 04/18/23 Ricardo Jones MD [address] [facility] [address] [place] [address] PCP - General Internal Medicine 05/13/23 Size Stamper Relationship Specialty Start Date End Date Ricardo Jones MD [address] [facility] [address] [place] [address] PCP - ACO Reach 04/18/23 Ricardo Jones MD [address] [facility] [address] [place] [address] PCP - General Internal Medicine 05/13/23 Size Stamper Relationship Specialty Start Date End Date Ricardo Jones MD [address] [facility] [address] [place] [address] PCP - ACO Reach 04/18/23 Ricardo Jones MD [address] [facility] [address] [place] [address] PCP - General Internal Medicine 05/13/23 Size Stamper Relationship Specialty Start Date End Date Ricardo Jones MD [address] [facility] [address] [place] [address] PCP - ACO Reach 04/18/23 Ricardo Jones MD [address] [facility] [address] [place] [address] PCP - General Internal Medicine 05/13/23 Reason for Visit (unrecogniz ed section and content) Reason Onset Date Comments Med Refill 08/17/2024 Reason Comments Medicare Annual Wellness Visit Subsequen t Reason Onset Date Comments Med Refill 11/30/2024 FOR RECORDS PERTAINING TO PATIENTS WHO ARE OR HAVE BEEN ENROLLED IN A CHEMICAL DEPENDENCY/SUBSTANCEABUSE PROGRAM, SOME INFORMATION MAY BE OMITTED. This clinical summary was aggregated from multiple sources. Caution should be exercised in using it in the provision of clinical care. This summary normalizes information from multiple sources, and as a consequence, information in this document may materially change the coding, format and clinical context of patient data. In addition, data may be omitted in some cases. CLINICAL DECISIONS SHOULD BE BASED ON THE PRIMARY CLINICAL RECORDS. [employer] [facility]. provides no warranty or guarantee of the accuracy or completeness of information in this document.
[2024-12-04 10:31] LABS: Creatinine Urine Random 217.09 mg/dL (20.00-300.00); Microalbum Creatinine Ratio Ur 14.7 mg/g (0.0-29.9); Microalbumin Urine Random 3.2 mg/dL (<=30.0)
[2024-12-04 13:52] LABS: Alanine Aminotransferase 22 U/L (16-63); Albumin Globulin Ratio 1.1; Albumin Level 3.7 g/dL (3.4-5.0); Alkaline Phosphatase 77 U/L (46-116); Anion Gap 13.7; Aspartate Amino Transferase 16 U/L (15-37); BUN Creatinine Ratio 6.8; Calcium 9.1 mg/dL (8.5-10.1); Carbon Dioxide 28.8 mmol/L (21.0-32.0); Chloride 105 mmol/L (98-107); Chol HDL Ratio 2.7; Cholesterol 149 mg/dL (<=200); Estimated GFR (African America 57 (>=60 mL/min/1.73m^2); Estimated GFR (Non-African Ame 47 (>=60 mL/min/1.73m^2); Globulin 3.3 g/dL; Glucose 127 mg/dL (74-106); HDL Cholesterol 55 mg/dL (40-60); LDL Cholesterol Calculated 77.4 mg/dL; Potassium 4.5 mmol/L (3.5-5.1); Sodium 143 mmol/L (136-145); TSH W/ REFLEX FT4 2.268 uIU/mL (0.358-3.740); Triglycerides 83 mg/dL (<=150); VLDL CHOLESTEROL 16.6 mg/dL
[2024-12-05 23:00] LABS: Bilirubin Total 0.7 mg/dL (0.2-1.0)
== END 2024-12-04 09:45 | disposition home or self-care (01) ==
LOC: LAB 09:49
PROVIDERS: PCP Internal Medicine; Visit Provider Internal Medicine
DX: E11.42 Type 2 diabetes mellitus with diabetic polyneuropathy (principal); I10 Essential (primary) hypertension; E78.2 Mixed hyperlipidemia; I49.1 Atrial premature depolarization
CPT/HCPCS: 36415; 80053; 80061; 82043; 82570; 84443

== ENCOUNTER 2025-08-18 10:07 | Outpatient (OUT) | payer MEDICARE, OTHER, SELFPAY ==
--- OUTSIDE RECORDS SUMMARY | 2025-08-18 10:16 | XMS_ITS ---
Author Organization [facility] Address [address] [place] [address] Care Team Providers Care Telemedicine Physician Name Role Phone Ricardo Jones MD Unavailable [phone] Ricardo Jones MD Primary Care Provider [phone] Yuki Vanegas LPN Unavailable Chronic Care Management (CCM) Status:Enrolled (Active) Start date:08/28/2017 Enrollment date:08/28/2017 Overview 09/11/23, 12:16 PM - Katrinasaturday, CHRISTY- Patient gives verbal consent to be enrolled in CCM Program and understands there could be a bill for this service. Case Team Name Relationship Phone Yuki Vanegas LPN(Responsible Staff) [phone] Continued Care and Services Coordination
--- OUTSIDE RECORDS SUMMARY | 2025-08-18 10:16 | XMS_ITS | Encounter Summary ---
Author Organization [facility] Address [address] [place] [address] Care Team Providers Care Gasoline Truck Crane Operator Name Role Phone Ricardo Jones MD Unavailable [phone] Ricardo Jones MD Primary Care Provider [phone] Sheri Wilkerson RN Unavailable [phone] Yuki Vanegas LPN Unavailable Encounter Details Date Type Department Care Team (Late st Contact Info) Description 06/11/2024 [facility] [address] [facility] [address] [place] [address] Ricardo Jones MD [address] [facility] [address] [place] [address] Social History Tobacco Use Types Packs/Day Years Used Date Smoking Tobacco: Never Smokeless Tobacco: Never Alcohol Use Standard Drinks/Week Comments Never 0 (1 standard drink = 0.6 oz pur e alcohol) Humiliation, Afraid, Rape, and Kick questionnair e Answer Date Recorded Within the last year, have y ou been afraid of your partner or ex-partner? No 08/19/2023 Within the last year, have y ou been humiliated or emotionally abused in other ways by your partner or ex-partner? No Within the last year, have y ou been kicked, hit, slapped, or otherwise physically hurt by your partner or ex-partner? No 08/19/2023 Within the last year, have y ou been raped or forced to have any kind of sexual activity by your partner or ex-partner? No 08/19/2023 Social Connection and Isolat ion Panel [NHANES] Answer Date Recorded In a typical week, how many times do you talk on the phone with family, friends, or neighbors? More than three times a week 08/19/2023 How often do you get togethe r with friends or relatives? More than three times a week 08/19/2023 How often do you attend chur ch or congregational services? More than 4 times per year 08/19/2023 Do you belong to any clubs o r organizations such as moravian groups, unions, fraternal or athletic groups, or school groups? No 08/19/2023 How often do you attend meet ings of the clubs or organizations you belong to? More than 4 times per year 08/19/2023 Are you , , di vorced, , never , or living with a partner? 08/19/2023 AUDIT-C Answer Date Recorded Q1: How often do you have a drink containing alcohol? Never 08/19/2023 Q2: How many drinks containi ng alcohol do you have on a typical day when you are drinking? Patient does not drink Q3: How often do you have si x or more drinks on one occasion? Never 08/19/2023 Overall Financial Resource Strain (CARDIA) Answe r Date Recorded How hard is it for you to pa y for the very basics like food, housing, medical care, and heating? Not hard at all 08/19/2023 [facility] - Occupational Stress Questionnaire Answer Date Recorded Do you feel stress - tense, restless, nervous, or anxious, or unable to sleep at night because your mind is troubled all the time - these days? Not at all 08/19/2023 Exercise Vital Sign Answer Date Recorde d On average, how many days pe r week do you engage in moderate to strenuous exercise (like a brisk walk)? 7 days 08/19/2023 On average, how many minutes do you engage in exercise at this level? 30 min 08/19/2023 Hunger Vital Sign Answer Date Recorded Within the past 12 months, y ou worried that your food would run out before you got the money to buy more. Never true 08/19/20 23 Within the past 12 months, t he food you bought just didn't last and you didn't have money to get more. Never true 08/19/2023 PRAPARE - Transportation Answer Date Re corded In the past 12 months, has l ack of transportation kept you from medical appointments or from getting medications? No 07/27 In the past 12 months, has l ack of transportation kept you from meetings, work, or from getting things needed for daily living? No 08/19/2023 Housing Stability Vital Sign Answer Flaco e Recorded In the last 12 months, was t here a time when you were not able to pay the mortgage or rent on time? No 08/19/2023 In the last 12 months, how many places have you lived? 1 08/19/2023 In the last 12 months, was t here a time when you did not have a steady place to sleep or slept in a long-term (including now)? No 08/19/2023 Sex and Gender Information Value Date Recorded Sex Assigned at Not on file Legal Sex Male 7:16 PM EDT Gender Identity Not on file Sexual Orientation Not on file documented as of this encounter Plan of Treatment Upcoming Encounters Date Type Department Care Team (Late st Contact Info) Description 01/03/2026 9:00 AM EST Office Visit [facility] [place] [facility] [address] [facility] [address] [place] [address] Ricardo Jones MD [address] [facility] [address] [place] [address] documented as of this encounter Visit Diagnoses Not on filedocumented in this encounter Care Teams Gasoline Truck Crane Operator Relationship Specialty Start Date End Date Ricardo Jones MD [address] [facility] [address] [place] [address] PCP - ACO Reach 04/18/23 Ricardo Jones MD [address] [facility] [address] [place] [address] PCP - General Internal Medicine 05/13/23 Sheri Wilkerson, NOMAN [address] [place] [address] Clinical Adv[facility] Family Medicine 01/01/25 02/12/25 Yuki Vanegas LPN 112 [facility] 110 [place] [address] 02/12/25 documented as of this encounter
--- OUTSIDE RECORDS SUMMARY | 2025-08-18 10:16 | XMS_ITS | Encounter Summary ---
Author Organization [facility] Address [address] [facility] [place] [address] Care Team Providers Care Windows Application Administrator Name Role Phone Ricardo Jones MD Unavailable [phone] Ricardo Jones MD Primary Care Provider [phone] Yuki Vanegas LPN Unavailable Encounter Details Date Type Department Care Team (Late st Contact Info) Description 05/20/2025 [facility] [address] [facility] [address] [place] [address] Ricardo Jones MD 112 [facility] 110 [place] [address] Social History Tobacco Use Types Packs/Day Years Used Date Smoking Tobacco: Never Smokeless Tobacco: Never Alcohol Use Standard Drinks/Week Comments Never 0 (1 standard drink = 0.6 oz pur e alcohol) B1300 Health Literacy Answer Date Recor ded How often do you need to hav e someone help you when you read instructions, pamphlets, or other written material from your doctor or pharmacy? Never 09/03/2024 Humiliation, Afraid, Rape, and Kick questionnair e [...] 08/19/2023 How often do you attend chur or quaker services? More than 4 times per year 08/19/2023 Do you belong to any clubs o r organizations such as druze groups, unions, fraternal or athletic groups, or [...] and heating? Not hard at all 08/19/2023 PHQ-2 Answer Date Recorded Patient Health Questionnaire-2 Score 0 05/20/2025 [facility]at ionvt Health - Occupational Stress Questionnaire Answer Date [...] place to sleep or slept in a mcfp (including now)? No 08/19/2023 Sex and Gender Information Value Date Recorded Sex Assigned at Not on file Legal Sex Male 7:16 PM EDT Gender Identity Not on file Sexual Orientation Not on file documented as of this encounter Functional Status * Over the past 2 weeks, how often have you been bothered by any of the following problems? Question Answer Date of Assessment Author Little interest or pleasure in doing things Not at all 05/20/2025 8:37 AM EDT Tracy Robles LP N Feeling down, depressed, or hopeless Not at all 05/20/2025 8:37 AM EDT Tracy Robles LP N Patient Health Questionnaire -2 Score 0 05/20/2025 8:37 AM EDT Tracy Robles LP N documented as of this encounter Plan of Treatment Upcoming Encounters Date Type Department Care Team (Late st Contact Info) Description 01/03/2026 9:00 AM EST Office Visit [facility] [place] [facility] [address] [facility] [address] [place] [address] Ricardo Jones MD 112 [facility] 110 [place] [address] documented as of this encounter Visit Diagnoses Not on filedocumented in this encounter Care Teams Windows Application Administrator Relationship Specialty Start Date End Date Ricardo Jones MD [address] [facility] [address] [place] [address] PCP - ACO Reach 04/18/23 Ricardo Jones MD [address] [facility] [address] [place] [address] PCP - General Internal Medicine 05/13/23 Yuki Vanegas LPN [address] [facility] [address] [place] [address] 02/12/25 documented as of this encounter
--- OUTSIDE RECORDS SUMMARY | 2025-08-18 10:16 | XMS_ITS | Encounter Summary ---
Author Organization [facility] Address [address] [place] [address] Care Team Providers Care Salesperson Hearing Aids Name Role Phone Ricardo Jones MD Unavailable [phone] Ricardo Jones MD Primary Care Provider [phone] Sheri Wilkerson RN Unavailable [phone] Yuki Vanegas LPN Unavailable Encounter Details Date Type Department Care Team (Late st Contact Info) Description 10/30/2023 [facility] [place] [facility] [address] [facility] 110 [place] [address] Ricardo Jones MD 112 [facility] 110 [place] [address] Social History Tobacco Use Types Packs/Day Years [...] often do you attend chur ch or methodist services? More than 4 times per year 08/19/2023 Do you belong to any clubs o r organizations such as mandaeism groups, unions, fraternal or athletic groups, or [...] and heating? Not hard at all 08/19/2023 [facility] Occup[facility] ional Health - Occupational Stress [...] place to sleep or slept in a skilled nursing (including now)? No 08/19/2023 Sex and Gender [...] [address] [facility] [address] [place] [address] Ricardo Jones MD [address] [facility] [address] [place] [address] documented as of this encounter Visit Diagnoses Not on filedocumented in this encounter Care Teams Salesperson Hearing Aids Relationship Specialty Start Date End Date Ricardo Jones MD [address] [facility] [address] [place] [address] PCP - ACO Reach 04/18/23 Ricardo Jones MD [address] [facility] [address] [place] [address] PCP - General Internal Medicine 05/13/23 Sheri Wilkerson, NOMAN [address] [place] [address] Clinical [facility] Family [facility] 01/01/25 02/12/25 Yuki Vanegas LPN 112 [facility] 110 [place] [address] 02/12/25 documented as of this encounter
--- OUTSIDE RECORDS SUMMARY | 2025-08-18 10:16 | XMS_ITS | Encounter Summary ---
Author Organization [facility] Address [address] [place] [address] Care Team Providers Care Flight Attendant Ramp Name Role Phone Ricardo Jones MD Unavailable [phone] Ricardo Jones MD Primary Care Provider [phone] Sheri Wilkerson RN Unavailable [phone] Yuki Vanegas LPN Unavailable Encounter Details Date Type Department Care Team (Late Contact Info) Description 08/14/2023 Orders Only [facility] [address] [facility] [address] [place] [address] A, Unknown Practice [address] [place], [place] [address] Social History Tobacco Use Types Packs/Day Years Used Date Smoking Tobacco: Never Smokeless Tobacco: Never Sex and Gender Information Value Date Recorded Sex Assigned at Not on file Legal Sex Male 7:16 PM EDT Gender Identity Not on file Sexual Orientation Not on file documented as of this encounter Plan of Treatment Upcoming Encounters Date Type Department Care Team (Late Contact Info) Description 01/03/2026 9:00 AM EST Office Visit [facility] 112 [facility] 110 [place] [address] Ricardo Jones MD 112 [facility] 110 [place], [place] [id number] documented as of this encounter Procedures Procedure Name Priority Date/Time Associated Diagnosis Comments PSA, TOTAL AND FREE Routine 08/14/2023 1:46 PM EDT documented in this encounter Results * PSA, total and free (08/14/2023 1:46 PM EDT) Blood Venous blood specimen / Unknown us Unknown Practice A LAB BLOOD ORDERABLES Final Re sult documented in this encounter Visit Diagnoses Not on filedocumented in this encounter Care Teams Flight Attendant Ramp Relationship Specialty Start Date End Date Ricardo Jones MD [address] [facility] 110 [place] [address] PCP - ACO Reach 04/18/23 Ricardo Jones MD [address] [facility] 110 [place] [address] PCP - General Internal Medicine 05/13/23 Sheri Wilkerson, RN [address] [place] [address] Clinical Advocate Family Medicine 01/01/25 02/12/25 Yuki Vanegas LPN [address] [facility] 110 [place] [address] 02/12/25 documented as of this encounter
--- OUTSIDE RECORDS SUMMARY | 2025-08-18 10:16 | XMS_ITS | Clinical Summary ---
Author Organization [facility] Address [address] [place] [address] Phone Care Team Providers Care Sheet Metal Worker Name Role Phone Unavailable Primary Care Provider Unavailabl e Social History Tobacco Use Types Packs/Day Years Used Date Smoking Tobacco: Never Assessed Sex and Gender Information Value Date Recorded Sex Assigned at Not on file Legal Sex Male 1:10 PM EST Gender Identity Not on file Sexual Orientation Not on file Plan of Treatment Not on file
--- OUTSIDE RECORDS SUMMARY | 2025-08-18 10:16 | XMS_ITS | Encounter Summary ---
Author Organization [facility] Address [address] [place] [address] Care Team Providers Care Threat Analyst Name Role Phone Ricardo Jones MD Unavailable [phone] Ricardo Jones MD Primary Care Provider [phone] Sheri Wilkerson RN Unavailable [phone] Yuki Vanegas LPN Unavailable Encounter Details Date Type Department Care Team (Late st Contact Info) Description 11/19/2024 Abstract [facility] [address] [facility] 110 [place] [address] Ricardo Jones MD 112 [facility] 110 [place] [address] Social History Tobacco Use Types Packs/Day Years [...] How often do you attend chur or protestant services? More than 4 times per year 08/19/2023 Do you belong to any clubs o r organizations such as nondenominational groups, unions, fraternal or athletic groups, or [...] Date Recorded Patient Health Questionnaire-2 Score 0 11/19/2024 [facility] - Occupational Stress [...] place to sleep or slept in a prison (including now)? No 08/19/2023 Sex and Gender [...] pleasure in doing things Not at all 11/19/2024 8:00 AM EST Sheri Allred MA Feeling down, depressed, or hopeless Not at all 11/19/2024 8:00 AM EST Sheri Allred MA Patient Health Questionnaire -2 Score 0 11/19/2024 8:00 AM EST Sheri Allred MA documented as of this encounter Plan of Treatment Upcoming Encounters Date Type Department Care Team (Late st Contact Info) Description 01/03/2026 9:00 AM EST Office Visit [facility] [place] [facility] [address] [facility] 110 [place] [address] Ricardo Jones MD 112 [facility] 110 [place] [address] documented as of this encounter Visit Diagnoses Not on filedocumented in this encounter Care Teams Threat Analyst Relationship Specialty Start Date End Date Ricardo Jones MD [address] [facility] 110 [place] [address] PCP - ACO Reach 04/18/23 Ricardo Jones MD [address] [facility] 110 [place] [address] PCP - General Internal Medicine 05/13/23 Sheri Wilkerson, RN [address] [facility] [place] [place] [address] Clinical Advocate Family Medicine 01/01/25 02/12/25 Yuki Vanegas LPN [address] [facility] 110 [place] [address] 02/12/25 documented as of this encounter
--- OUTSIDE RECORDS SUMMARY | 2025-08-18 10:16 | XMS_ITS | Encounter Summary ---
Author Organization [facility] Address [address] [facility] [place] [address] Care Team Providers Care Veterans Adviser Name Role Phone Ricardo Jones MD Unavailable Ricardo Jones MD Primary Care Provider [phone] Yuki Vanegas LPN Unavailable Encounter Details Date Type Department Care Team (Late st Contact Info) Description 05/21/2025 [facility] [address] [facility] 110 [place] [address] Ricardo Jones MD 112 [facility] 110 [place] [address] Social History Tobacco Use Types Packs/Day Years [...] How often do you attend chur or mosque services? More than 4 times per year 08/19/2023 Do you belong to any clubs o r organizations such as temple groups, unions, fraternal or athletic groups, or [...] Recorded Patient Health Questionnaire-2 Score 0 05/20/2025 [facility]at ionmt Health - Occupational Stress Questionnaire Answer Date [...] place to sleep or slept in a usp (including now)? No 08/19/2023 Sex and Gender Information Value Date Recorded Sex Assigned at Not on file Legal Sex Male 7:16 PM EDT Gender Identity Not on file Sexual Orientation Not on file documented as of this encounter Plan of Treatment Upcoming Encounters Date Type Department Care Team (Late st Contact Info) Description 01/03/2026 9:00 AM EST [facility] [place] [facility] [address] [facility] 110 [place] [address] Ricarod Jones MD [address] [facility] 110 [place] [address] documented as of this encounter Visit Diagnoses Not on filedocumented in this encounter Care Teams Veterans Adviser Relationship Specialty Start Date End Date Ricardo Jones MD [address] [facility] 110 [place] [address] PCP - ACO Reach 04/18/23 Ricardo Jones MD [address] [facility] 110 [place] [address] PCP - General Internal Medicine 05/13/23 Yuki Vanegas LPN 112 [facility] 110 [place] [address] 02/12/25 documented as of this encounter
--- OUTSIDE RECORDS SUMMARY | 2025-08-18 10:17 | XMS_ITS | Encounter Summary ---
Author Organization [facility] Address [address] [facility] [place] [address] Care Team Providers Care Calender Wind Up Helper Name Role Phone Ricardo Jones MD Unavailable [phone] Ricardo Jones MD Primary Care Provider [phone] Yuki Vanegas LPN Unavailable Encounter Details Date Type Department Care Team (Late st Contact Info) Description 07/06/2025 [facility] [address] [facility] 110 [place] [address] Ricardo Jones MD 112 [facility] 110 [place] [address] Social History Tobacco Use Types Packs/Day Years [...] How often do you attend chur or evangelical services? More than 4 times per year 08/19/2023 Do you belong to any clubs o r organizations such as buddhist groups, unions, fraternal or athletic groups, or [...] Recorded Patient Health Questionnaire-2 Score 0 05/20/2025 [facility] Occupat ionct Health - Occupational Stress Questionnaire Answer Date [...] place to sleep or slept in a senior care (including now)? No 08/19/2023 Sex and Gender Information Value Date Recorded Sex Assigned at Not on file Legal Sex Male 7:16 PM EDT Gender Identity Not on file Sexual Orientation Not on file documented as of this encounter Plan of Treatment Upcoming Encounters Date Type Department Care Team (Late st Contact Info) Description 01/03/2026 9:00 AM EST Office [facility] [place] [facility] [address] [facility] [address] [place] [address] Ricardo Jones MD [address] [facility] [address] [place] [address] documented as of this encounter Visit Diagnoses Not on filedocumented in this encounter Care Teams Calender Wind Up Helper Relationship Specialty Start Date End Date Ricardo Jones MD [address] [facility] 110 [place] [address] PCP - ACO Reach 04/18/23 Ricardo Jones MD [address] [facility] 110 [place] [address] PCP - General Internal Medicine 05/13/23 Yuki Vanegas LPN 112 [facility] 110 [place] [address] 02/12/25 documented as of this encounter
--- OUTSIDE RECORDS SUMMARY | 2025-08-18 10:17 | XMS_ITS | Clinical Summary ---
Author Organization [facility] Address [address] [place] [address] Care Team Providers Care Psychiatric Aide Name Role Phone Ricardo Jones MD Unavailable [phone] Ricardo Jones MD Primary Care Provider [phone] Yuki Vanegas LPN Unavailable Allergies Active Allergy Reactions Criticality Noted Date Comments Penicillin G Unknown 05/02/2023 Sulfa Antibiotics Low 11/13/2024 Other Reaction(s): Hives, Rash Medications albuterol HFA 90 mcg/act inhaler Inhale 2 puffs every 6 (six) hours if needed. 2 Active Blood Glucose Monitoring Suppl ([employer] Glucometer) w/Device kit TEST BLOOD SUGARS TWO TIMESA DAY bid (before breakfast and supper) for 90 days Active losartan (Cozaar) 50 MG tabletIndications: Benign essential hypertension Take 1 tablet (50 mg) by mouth in the morning and 1 tablet (50 mg) before bedtime. 180 tablet 2 5 03/03/20 Active metoprolol succinate XL (Toprol-XL) 25 MG 24 hr tabletIndications: Supraventricular premature beats Take 1 tablet (25 mg) by mouth Daily 90 tablet 3 5 05/20/20 26 Active glimepiride (Amaryl) 4 MG tabletIndications: DM type 2 with diabetic peripheral neuropathy (HCC) Take 1 tablet (4 mg) by mouth in the morning. Take before meals. 90 tablet 3 5 05/20/20 26 Active gabapentin (Neurontin) 300 MG capsuleIndications :DM type 2 with diabetic peripheral neuropathy (HCC) Take 1 capsule (300 mg) by mouth in the morning and 1 capsule (300 mg) in the evening and 1 capsule (300 mg) before bedtime. 270 capsule 3 5 05/20/20 26 Active atorvastatin (Lipitor) 40 MG tabletIndications: Mixed hyperlipidemia Take 1 tablet (40 mg) by mouth 1 (one) time each day at the same time 90 tablet 3 5 05/20/20 26 Active DULoxetine (Cymbalta) [address] capsuleIndications :Generalized anxiety disorder Take 1 capsule (30 mg) by mouth in the morning and 1 capsule (30 mg) before bedtime. Do not crush or chew. 60 capsule 11 5 05/20/20 26 Active ALPRAZolam (Xanax) 0.5 MG tabletIndications: Generalized anxiety disorder Take 1 tablet (0.5 mg) by mouth 3 (three) times a day as needed for anxiety 30 tablet 2 5 01/15/20 26 Active traMADol (Ultram) 50 MG tabletIndications: Degeneration of intervertebral disc of lumbosacral region with discogenic back pain Take 1 tablet (50 mg) by mouth every 6 (six) hours if needed for severe pain 90 tablet 2 5 09/29/20 25 Active Active Problems Problem Noted Date Diagnosed Date Generalized anxiety disorder 05/20/2025 BPH with urinary obstruction 11/13/2024 Former smoker 11/13/2024 Hypertension 11/13/2024 Nocturia 11/13/2024 Personal history of prostate cancer 11/13/2024 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 11/13/2024 Urinary retention 11/13/2024 Benign essential hypertension 05/02/2023 Degeneration of lumbar or lumbosacral interverte bral disc 05/02/2023 DM type 2 with diabetic peripheral neuropathy Hiatal hernia 05/02/2023 Malignant neoplasm of prostate 05/02/2023 Mild intermittent asthma 05/02/2023 Mixed hyperlipidemia 05/02/2023 Pityriasis versicolor 05/02/2023 Stage 2 chronic kidney disease 05/02/2023 Supraventricular premature beats 05/02/2023 Encounters Date Type Department Care Team Description 07/07/2025 Abstract [facility] 112 [facility] 110 [place] [address] Ricardo Jones MD 07/06/2025 Abstract [facility] [place] [facility] [address] [facility] 110 [place] [address] Ricardo Jones MD 07/06/2025 Patient Outreach [facility] [address] [place] [address] Guilherme YukiCHRISTY mcgill 07/06/2025 Telephone [facility] [place] [facility] [address] [facility] 110 [place] [address] Ricardo Jones MD pa tramadol 07/01/2025 9:00 AM EDT Office Visit [facility] [place] [facility] [address] [facility] [address] [place] [address] Ricardo Jones MD Generalized anxiety disorder (Primary Dx); Degeneration of intervertebral disc of lumbosacral region with discogenic back pain 07/01/2025 Travel 05/21/2025 Abstract [facility] [place] [facility] [address] [facility] [address] [place] [address] Ricardo Jones MD 05/20/2025 8:30 AM EDT Office Visit [facility] [place] [facility] [address] [facility] [address] [place] [address] Ricardo Jones MD Type 2 diabetes mellitus with diabetic chronic kidney disease (HCC) (Primary Dx); Malignant neoplasm of prostate (HCC); Chronic kidney disease, stage 3a (CMS-HCC); Supraventricular premature beats; DM type 2 with diabetic peripheral neuropathy (HCC); Mixed hyperlipidemia ; Generalized anxiety disorder 05/20/2025 Abstract [facility] [place] [facility] [address] [facility] [address] [place] [address] Ricardo Jones MD 05/20/2025 Bamboo flowsheet [facility] [place] [facility] [address] [facility] [address] [place] [address] Ricardo Jones MD 05/20/2025 Travel 05/19/[address] [facility] [address] [place] [address] Sheri Wilkerson RN from Last 3 Months Immunizations Immunization Administration Dates Next Due Influenza, High Dose Seasona l, Preservative Free 09/21/2021 Influenza, High-dose Seasona l, Quadrivalent, Preservative Free 11/19/2024,10/23/2023,09/14/2022,10/04 Pneumococcal Conjugate PCV 13 08/31/2020 Pneumococcal Polysaccharide PPSV23 08/11/2018 Zoster, Recombinant 08/31/2020 Family History Medical History Relation Name Comments Diabetes Mother Heart disease Mother Relation Name Status Comments Father Mother Social History Tobacco Use Types Packs/Day Years Used Date Smoking Tobacco: Never Smokeless Tobacco: Never Tobacco Cessation:Counseling Given: Not Answered Alcohol Use Standard Drinks/Week Comments Never 0 [...] week 08/19/2023 How often do you attend [facility] or judaism services? More than 4 times per year 08/19/2023 Do you belong to any clubs o r organizations such as religious groups, unions, fraternal or athletic groups, or [...] Recorded Patient Health Questionnaire-2 Score 0 05/20/2025 [facility] Occupat ional [facility] - Occupational Stress Questionnaire Answer Date Recorded [...] place to sleep or slept in a half-way (including now)? No 08/19/2023 Sex and Gender Information Value Date Recorded Sex Assigned at Not on file Legal Sex Male 7:16 PM EDT Gender Identity Not on file Sexual Orientation Not on file Last Filed Vital Signs Vital Sign Reading Time Taken Comments Blood Pressure 134/84 07/01/2025 8:53 AM EDT Pulse 76 07/01/2025 8:53 AM EDT Temperature - - Respiratory Rate - - Oxygen Saturation 96% 07/01/2025 8:53 AM EDT Inhaled Oxygen Concentration - - Weight 95.3 kg (210 lb) 07/01/2025 8:53 AM EDT Height 166.4 cm (5' 5.5 ) 07/01/2025 8:53 AM EDT Body Mass Index 34.41 07/01/2025 8:53 AM EDT Plan of Treatment Upcoming Encounters Date Type Department Care Team (Late st Contact Info) Description 01/03/2026 9:00 AM EST Office Visit [facility] [place] [facility] 112 [facility] 110 [place] [address] Ricardo Jones MD 112 [facility] 110 [place] [address] Health Maintenance Due Date Last Done Comments CT Colonography 1951 FIT-DNA 1951 FIT 1951 FOBT 1951 Sigmoidoscopy 1950 Colonoscopy 07/25/2025 07/25/2015, 07/25/2015 Colorectal Cancer Screening 07/25/2025 Influenza Vaccine (#1) 2025 4, 10/23/2023, 09/14/2022, Additional history exists Diabetes: Hemoglobin A1C 08/20/2025 025, 11/19/2024, 04/22/2024, Additional history exists Diabetes: Urine Protein Screening 12/04/2025 12/04/2024, 10/23/2023, 08/15/2020, Additional history exists Diabetes: Retinopathy Screening 06/11/2026 06/11/2024, 05/07/2019, 07/07/2018 Pneumococcal Vaccine: 65+ Years Completed 0, 08/11/2018 Procedures Procedure Name Priority Date/Time Associated Diagnosis Comments POCT GLYCATED HEMOGLOBIN, TOTAL Routine 05/20/2025 9:13 AM EDT Type 2 diabetes mellitus with diabetic chronic kidney disease (HCC) DIABETIC RETINOPATHY SCREENING - OU - BOTH EYES Routine 06/11/2024 MICROALBUMIN / CREATININE URINE RATIO Routine 10/23/2023 10:25 AM EST DM type 2 with diabetic peripheral neuropathy (HCC) COLONOSCOPY Routine 07/25/2015 12:00 PM EDT from Last 3 Months or Most Recently Relevant to Health Maintenance Results * POCT Glycated hemoglobin, total (05/20/2025 9:13 AM EDT) Hemoglobin A1C 6.2 Blood 05/20/2025 9:13 AM EDT us Ricardo Jones MD POINT OF CARE TEST ENTER/EDIT ORDERABLES Final Result * Diabetic Retinopathy Screening - OU - Both Eyes (06/11/2024) RESULTS NDR Anatomical Region Laterality Modality Head Other 06/11/2024 us Ricardo Jones MD OPHTH PHOTOGRAPHY Final Result * Microalbumin / creatinine urine ratio (10/23/2023 10:25 AM EST) CREATININE, RANDOM URINE 116 20 - 320 mg/dL [facility] ALBUMIN, URINE 2.3 See Note: mg/dL [facility] Comment: Reference Range: Reference Range Not established ALBUMIN/CREATININE RATIO, RANDOM URINE 20 <30 mcg/mg creat [facility] Comment: The ADA defines abnormalities in albumin excretion as follows: Albuminuria Category Result (mcg/mg creatinine) Normal to Mildly increased <30 Moderately increased 30-299 Severely increased > OR = 300 The ADA recommends that at least two of three specimens collected within a 3-6 month period be abnormal before considering a patient to be within a diagnostic category. Urine Urine specimen obtained by clean catch procedure / Unknown 10/23/2023 10:25 AM EST 10/23/2023 4:41 PM EST Narrative [facility] - 10/24/2023 12:36 PM EST SPLIT 10/23/2023 FROM [id number] Resulting Agency Comment Performing Organization Information Site ID: [id number] Name: [facility] Address: [address] [place] [address], [address] [place] [id number] Director: John Gamboa MD Ricardo Jones MD LAB URINE ORDERABLES Final Res ult Performing Organization Address City/State/[facility] Co de Phone Number [facility] * Colonoscopy (07/25/2015 12:00 PM EDT) Anatomical Region Laterality Modality Endoscopy 07/25/2015 12:0 0 PM EDT Narrative 07/25/2015 12:00 PM EDT PERFORMED AT [facility] LOCATION:[id number] tubular adneoma, vascular abnormalities,int. hem. Procedure Note CONVERSION, GENERIC - 04/11/2023 PERFORMED [address] [facility] LOCATION:[id number] tubular adneoma, vascular abnormalities,int. hem. us Ricardo Jones MD ENDOSCOPY PROCEDURE ORDERABLES Final Result from Last 3 Months or Most Recently Relevant to Health Maintenance Insurance [employer] Care Teams Psychiatric Aide Relationship Specialty Start Date End Date Ricardo Jones MD [address] [facility] 110 [place] [address] PCP - ACO Reach 04/18/23 Ricardo Jones MD [address] [facility] 110 [place] [address] PCP - General Internal Medicine 05/13/23 Yuki Vanegas LPN [address] [address] 02/12/25
--- OUTSIDE RECORDS SUMMARY | 2025-08-18 10:17 | XMS_ITS | Encounter Summary ---
Author Organization [facility] Address [address] [facility] [place] [address] Care Team Providers Care Glass Glazier Name Role Phone Ricardo Jones MD Unavailable [phone] Ricardo Jones MD Primary Care Provider [phone] Yuki Vanegas LPN Unavailable Encounter Details Date Type Department Care Team (Late st Contact Info) Description 07/07/[address] [facility] [address] [facility] 110 [place] [address] Ricardo Jones MD 112 [facility] 110 [place] [address] Social History Tobacco Use Types Packs/Day Years [...] How often do you attend chur or anglican services? More than 4 times per year 08/19/2023 Do you belong to any clubs o r organizations such as cheondoism groups, unions, fraternal or athletic groups, or [...] Recorded Patient Health Questionnaire-2 Score 0 05/20/2025 [facility] of Occupat ionme Health - Occupational Stress Questionnaire Answer Date [...] place to sleep or slept in a detention (including now)? No 08/19/2023 Sex and Gender Information Value Date Recorded Sex Assigned at Not on file Legal Sex Male 7:16 PM EDT Gender Identity Not on file Sexual Orientation Not on file documented as of this encounter Plan of Treatment Upcoming Encounters Date Type Department Care Team (Late st Contact Info) Description 01/03/2026 9:00 AM EST [facility] [place] [facility] [address] [facility] [address] [place] [address] Ricardo Jones MD [address] [facility] [address] [place] [address] documented as of this encounter Visit Diagnoses Not on filedocumented in this encounter Care Teams Glass Glazier Relationship Specialty Start Date End Date Ricardo Jones MD [address] [facility] [address] [place] [address] PCP - ACO Reach 04/18/23 Ricardo Jones MD [address] [facility] 110 [place] [address] PCP - General Internal Medicine 05/13/23 Yuki Vanegas LPN 112 [facility] 110 [place] [address] 02/12/25 documented as of this encounter
--- OUTSIDE RECORDS SUMMARY | 2025-08-18 10:20 | XMS_ITS | CCD ---
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 Name Role Phone AMANUEL DIGGS Attending Unavailable RUDDY, DR ELVIS Rivera Admitting Unavailable RDUDY, DR ELVIS Rivera Attending Unavailable RANDAL, DR DELCID Primary Care Unavailable RUDDY, DR ELVIS Rivera Consulting Unavailable RICARDO JONES Primary Care Physician Herberth Tyson Attending Unavaila rupert Tyson, Herberth Admitting Unavaila Ricardo Orellana Primary Care Unavailable Ricardo Jones MD Unavailable Ricardo Jones MD Primary Care Provider [phone] Yuki Vanegas LPN Unavailable RICARDO JONES Attending Unavailable RICARDO JONES Attending Unavailable RICARDO JONES Attending Unavailable Elvis FOX Attending Unavailable Elvis FOX Attending Unavailable Marcela Sotelo Attending Unavailable Allergies Allergy Classification Reported Allergen(s) Allergy Type Date of Onset Reaction(s) Facility (4 sources) Penicillins; Translations: [penicillins] Drug allergy (disorder) 3 Unknown (qualifier value) [facility] Repository (4 sources) Sulfonamides (Antibiotic); Translations: [sulfa drugs] Drug allergy Weal (disorder), Cutaneous eruption (morphologic abnormality) [facility] (1 source) Penicillins Drug allergy (disorder) 8 [facility] Repository (12 sources) Penicillin G Drug Allergy 3 Unknown [facility] Work Phone: (10 sources) Sulfonamides (Antibiotic) Drug Allergy 4 [facility] (1 source) Penicillin; Translations: [penicillins] Drug Allergy Unknown (qualifier value) [facility] Medic[facility] Current Medications Medication Drug Class(es) Dates Sig (Normalized) Sig (Original) 14fr straight catheter (3 sources) Start: 05-31-2025 14fr straight catheter 14fr straight catheter, See Instructions, 30 EA, 3, Pt [facility] 2x/ wk., [id number] Supply, 167, cm, 08/24/24 8:12:00 EDT, Height/Length Dosing, 96, kg, 08/24/24 8:12:00 EDT, Weight Dosing Start Date: 05/31/25 Status: Ordered Quantity: 30.0 Unit: EA Repeat number: 4 Indications: Retention of urine, unspecified; Unspecified urethral stricture, male, meatal; Start: 08-24-2024 14fr straight catheter 14fr straight catheter, See Instructions, 30 EA, 3, Pt to [facility] 2x/ wk., [employer] [facility], Supply, 167, cm, 08/24/24 8:12:00 EDT, Height/Length Dosing, 96, kg, 08/24/24 8:12:00 EDT, Weight Dosing Start Date: 08/24/24 Status: Ordered Start: 04-15-2020 14fr straight catheter 14fr straight catheter, See Instructions, 30 EA, 3, Pt to [facility] 2x/ wk., [employer] [facility], Supply, 167, cm, 04/15/20 9:20:00 EDT, Height/Length Measured, 102.9, kg, 04/15/20 9:20:00 EDT, Weight Measured Start Date: 04/15/20 Status: Ordered [id number] 200 actuat albuterol 0.09 mg/actuat metered dose inhaler (15 sources) beta2-Adrenergic Agonist Start: 09-14-2022 take 2 puff(s) by inhalation every six hours albuterol HFA 90 mcg/act inhaler Inhale 2 puffs every 6 (six) hours if needed. 09/14/2022 Active Start: 04-06-2020 albuterol Refi lls(s) 0 Start Date: 04/06/20 Status: Ordered Repeat number: 1 Start: 04-06-2020 albuterol Refi lls(s) 0 Start Date: 04/06/20 Status: Ordered ALPRAZolam 0.5 mg oral tablet (5 sources) Benzodiazepine Start: 06-10-2025 take 1 tablet by mouth once daily as needed alprazolam 0.5 mg Tab 0.5 mg = 1 tab(s), Oral, Daily, TAKE 1 TABLET BY MOUTH 3 TIMES A DAY NEEDED FOR ANXIETY Start Date: 06/10/25 Status: Ordered Repeat number: 1 Start: 05-20-2025 End: 01-15-2026 take 1 tablet by mouth three times daily as needed for anxiety ALPRAZolam (Xanax) 0.5 MG tablet Indications: Generalized anxiety disorder Take 1 tablet (0.5 mg) by mouth 3 (three) times a day as needed for anxiety 30 tablet 2 05/20/2025 01/15/2026 Active atorvastatin 40 mg oral tablet (19 sources) HMG-CoA Reductase Inhibitor Start: 04-22-2024 End: 05-20-2026 take 1 tablet by mouth once daily atorvastatin (Lipitor) 40 MG tablet Indications: Mixed hyperlipidemia Take 1 tablet (40 mg) by mouth 1 (one) time each day at the same time 90 tablet 3 05/20/2025 05/20/2026 Active Start: 04-06-2020 Lipitor Refill s(s) 0 Start Date: 04/06/20 Status: Ordered Repeat number: 1 Start: 04-06-2020 Lipitor Refill s(s) 0 Start Date: 04/06/20 Status: Ordered Blood Glucose Monitoring Suppl (D-Care Glucometer) w/Device kit (12 sources) Blood Glucose Monitoring Suppl ([employer]Care Glucometer) w/Device kit TEST BLOOD SUGARS TWO TIMESA DAY bid (before breakfast and supper) for 90 days Active DULoxetine 30 mg delayed release oral capsule (5 sources) Serotonin and Norepinephrine Reuptake Inhibitor Start: 05-20-20 End: 05-20-20 take 1 capsule by mouth in the morning DULoxetine (Cymbalta) [address] capsule Indications: Generalized anxiety disorder Take 1 capsule (30 mg) by mouth in the morning and 1 capsule (30 mg) before bedtime. Do not crush or chew. 60 capsule 11 05/20/2025 05/20/2026 Active gabapentin 300 mg oral capsule (19 sources) Anti-epileptic Agent Start: 04-22-20 End: 05-20-20 take 1 capsule by mouth in the [...] (300 mg) before bedtime. 270 capsule 3 05/20/2025 05/20/2026 Active Start: 04-06-2020 Neurontin 300 mg, Refills(s) 0 Start Date: 04/06/20 Status: Ordered Repeat number: 1 Start: 04-06-2020 Neurontin 300 mg, Refills(s) 0 Start Date: 04/06/20 Status: Ordered glimepiride 4 mg oral tablet (19 sources) Sulfonylurea Start: 04-22-2024 End: 05-20-2026 take 1 tablet by mouth before mealtime glimepiride (Amaryl) 4 MG tablet Indications: DM type 2 with diabetic peripheral neuropathy (HCC) Take 1 tablet (4 mg) by mouth in the morning. Take before meals. 90 tablet 3 05/20/2025 05/20/2026 Active Start: 04-06-2020 glimepiride 4 mg, Refills(s) 0 Start Date: 04/06/20 Status: Ordered Repeat number: 1 Start: 04-06-2020 glimepiride 4 mg, Refills(s) 0 Start Date: 04/06/20 Status: Ordered losartan potassium 50 mg oral tablet (14 sources) Angiotensin 2 Receptor Jered Start: 04-22-2024 End: 03-03-2026 take 1 tablet by mouth in the morning losartan (Cozaar) 50 MG tablet Indications: Benign essential hypertension Take 1 tablet (50 mg) by mouth in the morning and 1 tablet (50 mg) before bedtime. 180 tablet 2 03/03/2025 03/03/2026 Active 24 hr metoprolol succinate 25 mg extended release oral tablet (19 sources) beta-Adrenergic Jered Start: 04-22-2024 End: 05-20-2026 take 1 tablet by mouth once daily metoprolol succinate XL (Toprol-XL) 25 MG 24 hr tablet Indications: Supraventricular premature beats Take 1 tablet (25 mg) by mouth Daily 90 tablet 3 05/20/2025 05/20/2026 Active Start: 04-06-2020 Toprol-XL Refi lls(s) 0 Start Date: 04/06/20 Status: Ordered Repeat number: 1 Start: 04-06-2020 Toprol-XL Refi lls(s) 0 Start Date: 04/06/20 Status: Ordered traMADol hydrochloride 50 mg oral tablet (10 sources) Opioid Agonist Start: 07-01-2025 End: 09-29-2025 take 1 tablet by mouth every six hours for pain traMADol (Ultram) 50 MG tablet Indications: Degeneration of intervertebral disc of lumbosacral region with discogenic back pain Take 1 tablet (50 mg) by mouth every 6 (six) hours if needed for severe pain 90 tablet 2 07/01/2025 09/29/2025 Active Start: 08-17-2024 End: 12-30-2024 take 1 tablet [...] Refills(s) 0 Start Date: 04/06/20 Status: Ordered Repeat number: 1 Start: 04-06-2020 tramadol 25 mg , Refills(s) 0 Start Date: 04/06/20 Status: Ordered Diovan (3 sources) Angiotensin 2 Receptor Jered Start: 04-06-2020 Diovan Refills(s) 0 Start Date: 04/06/20 Status: Ordered Repeat number: 1 Start: 04-06-2020 Diovan Refills (s) 0 Start Date: 04/06/20 Status: Ordered Problems Active Problems Problem Classification Problem Date Documented Date Episodic/Chronic Anxiety disorders (8 sources) Generalized anxiety disorder; Translations: [Generalized anxiety disorder] Onset: 05-20-2025 05-20-2025 Chronic Asthma (12 sources) Mild intermittent asthma; Translations: [Mild intermittent asthma, uncomplicated] Onset: 05-02-2023 05-02-2023 Chronic Cancer of prostate (14 sources) Malignant tumor of prostate; Translations: [Malignant neoplasm of prostate] Onset: 05-02-2023 05-02-2023 Chronic Cardiac dysrhythmias (16 sources) Supraventricular premature beats; Translations: [Atrial premature depolarization] Onset: 05-02-2023 05-02-2023 Chronic Chronic kidney disease (14 sources) Chronic kidney disease stage 2; Translations: [Chronic kidney disease, stage 2 (mild)] Onset: 05-02-2023 05-02-2023 Chronic Diabetes mellitus with complications (18 sources) Type 2 diabetes mellitus; Translations: [Type 2 diabetes mellitus with diabetic polyneuropathy] Onset: 05-02-2023 05-02-2023 Chronic Disorders of lipid metabolism (19 sources) Hyperlipidemia; Translations: [Mixed hyperlipidemia] Onset: 05-02-2023 04-15-2020 Chronic Essential hypertension (20 sources) Hypertensive disorder; Translations: [Benign essential hypertension] Onset: 05-02-2023 04-06-2020 Chronic Hyperplasia of prostate (16 sources) Benign prostatic hypertrophy with outflow obstruction; Translations: [Benign prostatic hyperplasia with lower urinary tract symptoms] Onset: 04-13-2022 Chronic Immunizations and screening for infectious disease (4 sources) Patient encounter status; Translations: [Encounter for immunization] 11-19-2024 Episodic Other diseases of bladder and urethra (3 sources) Submeatal urethral stricture; Translations: [Unspecified urethral stricture, male, meatal] Onset: 04-13-2022 Episodic Other diseases of kidney and ureters (2 sources) Urinary tract obstruction; Translations: [Other obstructive and reflux uropathy] Onset: 04-13-2022 Episodic Other screening for suspected conditions (not mental disorders or infectious disease) (3 sources) Elevated cholesterol/high density lipoprotein ratio 04-06-2020 Episodic Spondylosis; intervertebral disc disorders; other back problems (19 sources) Degeneration of intervertebral disc; Translations: [Degeneration of lumbosacral intervertebral disc] Onset: 05-02-2023 04-06-2020 Chronic Past or Other Problems Problem Classification Problem Date Documented Da te Episodic/Chronic Abdominal hernia (18 sources) Hiatal hernia; Translations: [Diaphragmatic hernia without obstruction or gangrene] Onset: 05-02-2023 04-06-2020 Episodic Cancer of prostate (20 sources) Personal history of malignant neoplasm of prostate; Translations: [History of malignant neoplasm of prostate] Onset: 08-05-2020 Episodic Genitourinary symptoms and ill-defined conditions (20 sources) Nocturia; Translations: [Retention of urine] Onset: 11-13-2024 04-06-2020 Episodic Mycoses (12 sources) Pityriasis versicolor; Translations: [Pityriasis versicolor] Onset: 05-02-2023 05-02-2023 Episodic Other diseases of bladder and urethra (13 sources) Male urethral stricture; Translations: [Unspecified urethral stricture, male, meatal] Onset: 11-13-2024 04-06-2020 Episodic Screening and history of mental health and substance abuse codes (13 sources) Ex-smoker; Translations: [Personal history of nicotine dependence] Onset: 11-13-2024 04-06-2020 Episodic Results Test Name Value Interpretation Reference Range Facility Urology Office/Clinic Noteon 07-15-2025 Urology Office/Clinic Note Urology Office/Clinic Note Chief Complaint Needs caths for cic HPI Staff Office visit. Pt is here due to cath [facility] Pt has 1 year follow up scheduled in July w/PSA Previous Dx: BPH with obstruction, hx of prostate ca, urethral meatal stricture (does 2x a week, Tuesdays and Saturdays) S/P TRUS/bx 08/15/10, brachytherapy. Cysto/UD 05/08/18. Previous PSA 07/24/24 - <0.13 IPSS: 4, YSABEL: 17 Denies abdominal/flank pain, denies dysuria and visible blood History of Present Illness I have reviewed and verified the staff HPI to be accurate for this encounter. Portions of this record may have been created with voice recognition artificial intelligence software, specifically AnyPerk, dynaTrace software and or [employer]ling[employer]. Substitutions may have occurred due to the inherent limitations of voice recognition and artificial intelligence software. Review of Systems PHQ Score Initial Depression Screen Score: 0 SCORE Physical Exam Vitals & Measurements HR: 58(Peripheral) RR: 16 BP: 149/73 HT: 66 in HT: 167 cm WT: 207.234 lb WT: 94 kg BMI: 33.71 General: Well developed, well nourished, in no acute distress. Assessment/Plan [facility] pt 1. 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 (N35.911: Unspecified urethral stricture, male, meatal) s/p cysto/UD 05/08/18 CIC 2 x/week to keep stricture open azerbaijani straight, has been successful in keeping stricture patent -cont to CIC as recommended, rx faxed to [facility] today Ordered: Body Mass Index (BMI) documented 3008F Current tobacco non-user 1036F Depression Screening Negative 3352F Medication list documented in medical record 1159F Most recent diastolic blood pressure <80 mm Hg 3078F Most recent systolic blood pressure >= 140 mm Hg 3077F Patient screen for fall risk: no falls in last year or 1 fall with no injury in last year 1101F Review of all meds by a prescribing practitioner or clinical pharmacist documented in EHR 1160F Urnls Dip Stick Auto w/o Microscopy POC 30866 2. BPH with urinary obstruction (N40.1: Benign prostatic hyperplasia with lower urinary tract symptoms) IPSS 4, QoL 1 UA today w/ tract intact blood, small leuks Denies any bothersome urinary sxs not taking any bladder/prostate meds -cont to monitor Ordered: Body Mass Index (BMI) documented 3008F Current tobacco non-user 1036F Depression Screening Negative 3352F Medication list documented in medical record 1159F Most recent diastolic blood pressure <80 mm Hg 3078F Most recent systolic blood pressure >= 140 mm Hg 3077F Patient screen for fall risk: no falls in last year or 1 fall with no injury in last year 1101F Review of all meds by a prescribing practitioner or clinical pharmacist documented in EHR 1160F Urnls Dip Stick Auto w/o Microscopy POC 51118 3. Personal history of prostate cancer (Z85.46: Personal history of malignant neoplasm of prostate) PSA: 03/03/21 - 0.29 03/13/22 - 0.23 08/14/23 - <0.13 07/24/24 - <0.13 S/p TRUS/bx 08/15/10, brachytherapy. does have f/u schedule w/ [facility] w/ repeat PSA at that time -keep f/u appt as scheduled Ordered: Body Mass Index (BMI) documented 3008F Current tobacco non-user 1036F Depression Screening Negative 3352F Medication list documented in medical record 1159F Most recent diastolic blood pressure <80 mm Hg 3078F Most recent systolic blood pressure >= 140 mm Hg 3077F Patient screen for fall risk: no falls in last year or 1 fall with no injury in last year 1101F Review of all meds by a prescribing practitioner or clinical pharmacist documented in EHR 1160F Urnls Dip Stick Auto w/o Microscopy POC 11347 Other obstructive and reflux uropathy (N13.8: Other obstructive and reflux uropathy) Ordered: Body Mass Index (BMI) documented 3008F Current tobacco non-user 1036F Depression Screening Negative 3352F Medication list documented in medical record 1159F Most recent diastolic blood pressure <80 mm Hg 3078F Most recent systolic blood pressure >= 140 mm Hg 3077F Patient screen for fall risk: no falls in last year or 1 fall with no injury in last year 1101F Review of all meds by a prescribing practitioner or clinical pharmacist documented in EHR 1160F Urnls Dip Stick Auto w/o Microscopy POC 47592 Follow-up With When Contact Information RUDDY HUTCHINSON, Elvis Rivera, URL [address] [address]- Additional Instructions: as scheduled Patient Education Urethral Stricture Clean Intermittent Catheterization, Female Problem List/Past Medical History Ongoing BPH with urinary obstruction Former smoker Hiatal hernia Hyperlipidemia Hypertension Nocturia Personal history of prostate cancer 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 BPH with urinary obstruction Personal history of prostate cancer Other obstructive and reflux uropathy Your Care Team Attending Physician - TC Sotelo APRN, Aurora X Primary Care Physician - RICARDO JONES MD This Is Your Medications List Contact prescribing physician if questions or concerns Misc Prescription (14fr straight catheter) albuterol alprazolam (alprazolam 0.5 mg Tab) atorvastatin (Lipitor) duloxetine (duloxetine 30 mg oral delayed release capsule) gabapentin (Neurontin) glimepiride metoprolol (Toprol-XL) tramadol valsartan (Diovan) Procedures Performed Cystourethroscopy with dilation of urethral stricture (05/08/2018), TRUS (transrectal ultrasound) guided cryoablation of prostate (08/15/2010), Brachytherapy, Hiatus hernia repair. Discharge Vitals Heart Rate (Peripheral) 58 Respiratory Rate 16 Blood Pressure 149/73 Height 66 in Height 167 cm Weight 207.234 lb Weight 94 kg BMI 33.71 What to do next Scheduled Follow-Up Appointments Saturday 8:45 AM EDT With: RUDDY HUTCHINSON, Elvis Rivera Where: [facility] [address] [place] [address]- Medications What How Much When Why Instructions Unchanged albuterol Contact prescribing physician if questions or concerns Unchanged alprazolam (alprazolam 0.5 mg Tab) 1 Tablets By Mouth Every day TAKE 1 TABLET BY MOUTH 3 TIMES A DAY NEEDED FOR ANXIETY Contact prescribing physician if questions or concerns Unchanged atorvastatin (Lipitor) Contact prescribing physician if questions or concerns Unchanged duloxetine (duloxetine 30 mg oral delayed release capsule) 1 Capsules By Mouth Every day TAKE 1 CAPSULE BY MOUTH IN THE MORNING AND BEFORE BEDTIME, DO NOT CRUSH OR CHEW Contact prescribing physician if questions or concerns Unchanged gabapentin (Neurontin) 300 Milligram Contact prescribing physician if questions or concerns Unchanged glimepiride 4 Milligram Contact prescribing physician if questions or concerns Unchanged metoprolol (Toprol-XL) Contact prescribing physician if questions or concerns Unchanged Misc Prescription (14fr straight catheter) See instructions Urinary retention 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 Contact prescribing physician if questions or concerns [...] you for choosing us for your care. Patient Portal You may access all of your results and other medical record information on our secure patient portal. If you are not signed up for this yet, please contact [employer] at [phone] to get signed up today. Language Information Language assistance services are available as needed. Normal [facility] - Hematology and Cell countson 05-20-2025 HbA1c (Bld) [Mass fraction] 6.2 % [facility] [employer] No Panel Informationon 05-20 [employer] [facility] MICROALB CREAT RATIO RAN DOMon 12-04-2024 CREATININE URINE RANDOM 217.09 mg/dL 20.00 - 300.00 mg/dL [facility] [employer] MICROALBUM CREATININE RATIO UR 14.7 mg/g 0.0 - 29.9 mg/g [facility] [employer] Comment on above: NO MICROALBUMINURIA 0-29 MG/G CLINICAL MICROALBUMINURIA 30-300 MG/G MACROALBUMINURIA >300 MG/G MICROALBUMIN URINE RANDOM 3.2 mg/dL NINF - 30.0 mg/dL [employer] [facility] [employer] [facility] Laboratory - Hematology and Cell countson 11-19-2024 HbA1c (Bld) [Mass fraction] 6.1 % [facility] [employer] No Panel Informationon 11-19 Interpretation and review of laboratory results Normal [facility] [employer] Ambulatory Visit Summaryon 0 08-24-2024 Ambulatory Visit Summary Ambulatory Visit Summary DAVID GIFFORD :1950 Visit Date:08/24/2024 Ambulatory Visit Instructions Your Diagnosis Personal history of prostate cancer BPH with urinary obstruction 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 Urinary retention Your Care Team Attending Physician - RUDDY HUTCHINSON, Elvis Rivera Primary Care Physician - RANDAL HUTCHINSON, RICARDO Perera This Is Your Medications List Misc Prescription [...] Elvis FOX MD Where: [facility] [address] [place] [address]- You Need to Schedule the Following Appointments Follow Up with Elvis FOX MD, URL When: Where: [address] [facility] [address] [place] [address]- Medications What How Much When Why [...] at h (more content not included)... Normal [facility] Urology Office/Clinic Noteon 08-24-2024 Urology Office/Clinic Note Urology Office/Clinic Note Chief Complaint 1 year follow up with PSA HPI Staff 1 yr with PSA. Previous Dx: BPH with obstruction, hx of prostate ca, urethral meatal stricture (does [facility] 2x/wk). Self caths with no issues. Pt needs a new Rx for 14 azerbaijani straight caths written out for him to [...] issues. 14 Fr straight refilled to [facility]. Overall patient is doing well. Twice daily straight cath working for him. Refill sent for 180 catheters to be utilized as cath twice per week. 3 refills. PSA level remains near 0 at 0.13 and stable status post prostate brachytherapy. MARTINA is as noted. Follow-up 1 year. No changes Follow-up With When Contact Information RUDDY HUTCHINSON, Elvis Rivera, URL [address] [place] [id number]- Additional Instructions: 1 yr with PSA Patient [...] with voice recognition artificial intelligence software, specifically AnyPerk, dynaTrace software and or [employer]. Substitutions may have occurred due to the [...] History Congenita (more content not included)... Normal [facility] Comment on above: Result Comment: Elec tronically Signed By: Elvis FOX MD\.br\Date and Time Signed: 08/24/24 08:39 EDT\.br\Electronically Co-Signed By: Preethi Graham\.br\Date and Time Co-Signed: 08/24/24 08:37 EDT MHPT PSA, DIAGNOSTICon 07-24 PROSTATE SPECIFIC ANTIGEN DX <0.13 NINF - 4.00 ng/mL [facility] Vital Signs Date Time Vital Sign Value Performing Clinician Facility 07-01-2025 08:53-0400 Body height 166.4 cm Ricardo Jones MD Work Phone: [facility] 07-01-2025 08:53-0400 Body mass index (BMI) [Ratio] 34.41 kg/m2 Ricardo Jones MD Work Phone: [facility] 07-01-2025 08:53-0400 Body weight 95.25 kg Ricardo Jones MD Work Phone: [facility] 07-01-2025 08:53-0400 Diastolic blood pressure 84 mm[Hg] Ricardo Jones MD Work Phone: [facility] 07-01-2025 08:53-0400 Heart rate 76 /min Ricardo Jones MD Work Phone: [facility] 07-01-2025 08:53-0400 SaO2% (BldA) [Mass fraction] 96 % Ricardo Jones MD Work Phone: [facility] 07-01-2025 08:53-0400 Systolic blood pressure 134 mm[Hg] Ricardo Jones MD Work Phone: [facility] 05-20-2025 08:36-0400 Body height 166.4 cm Ricardo Jones MD Work Phone: [facility] 05-20-2025 08:36-0400 Body mass index (BMI) [Ratio] 34.74 kg/m2 Ricardo Jones MD Work Phone: [facility] 05-20-2025 08:36-0400 Body weight 96.16 kg Ricardo Jones MD Work Phone: [facility] 05-20-2025 08:36-0400 Diastolic blood pressure 70 mm[Hg] Ricardo Jones MD Work Phone: [facility] 05-20-2025 08:36-0400 Heart rate 71 /min Ricardo Jones MD Work Phone: [facility] 05-20-2025 08:36-0400 SaO2% (BldA) [Mass fraction] 95 % Ricardo Jones MD Work Phone: [facility] 05-20-2025 08:36-0400 Systolic blood pressure 136 mm[Hg] Ricardo Jones MD Work Phone: [facility] 11-19-2024 09:08-0500 Body height 166.4 cm Ricardo Jones MD Work Phone: [facility] 11-19-2024 09:08-0500 Body mass index (BMI) [Ratio] 34.25 kg/m2 Ricardo Jones MD Work Phone: [facility] 11-19-2024 09:08-0500 Body weight 94.8 kg Ricardo Jones MD Work Phone: [facility] 11-19-2024 09:08-0500 Diastolic blood pressure 82 mm[Hg] Ricardo Jones MD Work Phone: [facility] 11-19-2024 09:08-0500 Heart rate 81 /min Ricardo Jones MD Work Phone: [facility] 11-19-2024 09:08-0500 SaO2% (BldA) [Mass fraction] 96 % Ricardo Jones MD Work Phone: [facility] 11-19-2024 09:08-0500 Systolic blood pressure 132 mm[Hg] Ricardo Jones MD Work Phone: [facility] 08-24-2024 08:08-0400 Blood Pressure Location Elvis RUDDY [facility] 08-24-2024 08:08-0400 Diastolic blood pressure 84 mm[Hg] [employer] [facility] 08-24-2024 08:08-0400 Heart rate 68 /min Elvis [employer] [facility] 08-24-2024 08:08-0400 Respiratory rate 16 /min Elvis [employer] [facility] 08-24-2024 08:08-0400 Systolic blood pressure 122 mm[Hg] Elvis [employer] [facility] 04-13-2022 11:13-0400 Blood Pressure Location [employer] [facility] 04-13-2022 11:13-0400 Diastolic blood pressure 89 mm[Hg] Elvis [employer] [facility] 04-13-2022 11:13-0400 Heart rate 82 /min Elvis [employer] [facility] 04-13-2022 11:13-0400 Systolic blood pressure 142 mm[Hg] Elvis [employer] [facility] Encounters Encounter Date Encounter Type Care Provider Facility Start: 07-01-2025 End: 07-01-2025 Office outpatient visit 15 minutes Ricardo Jones MD Work Phone: [facility] Comment on above: Generalized anxiety disorder (Primary Dx); Degeneration of intervertebral disc of lumbosacral region with discogenic back pain Start: 07-01-2025 End: 07-01-2025 ambulatory RICARDO JONES Not Available Start: 06-10-2025 End: 06-10-2025 ambulatory Marcela Sotelo Facility: [place] Start: 06-10-2025 End: 06-10-2025 Patient encounter procedure Marcela Sotelo [facility] [place] Start: 05-20-2025 End: 05-20-2025 Bamboo flowsheet Ricardo Jones MD Work Phone: [facility] Start: 05-20-2025 End: 05-20-2025 Bamboo flowsheet Ricardo Jones MD Work Phone: [facility] Start: 05-20-2025 End: 05-20-2025 Office outpatient visit 25 minutes Ricardo Jones MD Work Phone: [facility] Comment on above: 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) (Primary Dx); Malignant neoplasm of prostate (HCC); Chronic kidney disease, stage 3a (CMS-HCC); Supraventricular premature beats; DM type 2 with diabetic peripheral neuropathy (HCC); Mixed hyperlipidemia ; Generalized anxiety disorder Start: 05-20-2025 End: 05-20-2025 ambulatory RICARDO JONES Not Available Start: 12-04-2024 End: 12-04-2024 Clinisync Result Encounter Ricardo Jones MD Work Phone: [facility] Unsolicited Start: 12-04-2024 End: 12-04-2024 Clinisync Result Encounter Ricardo Jones MD Work Phone: [facility]solic[facility] Start: 11-30-2024 End: 11-30-2024 Refill Katrina Saturday [employer] Work Phone: [facility] Comment on [...] Start: 08-24-2024 End: 08-24-2024 ambulatory Elvis FOX Facility:[facility] Start: 08-24-2024 End: 08-24-2024 Patient encounter procedure Elvis FOX [facility] Start: 08-17-2024 End: 08-17-2024 Refill Katrina Saturday [employer]NA[employer] Work Phone: [facility] Comment on above: Degeneration of lumb ar or lumbosacral intervertebral disc (Primary Dx) Start: 07-24-2024 End: 07-24-2024 Clinisync Result Encounter Generic External Data Provider [facility]solic[facility] Start: 07-24-2024 End: 07-24-2024 Clinisync Result Encounter Generic External Data Provider [facility]solic[facility] Start: 04-13-2022 End: 04-13-2022 Patient encounter procedure Elvis FOX [facility] Start: 03-13-2022 End: 03-14-[address] ELVIS FOX Facility: Start: 08-05-2020 End: 08-06-2020 ambulatory Herberth Tyson Facility:[facility] Start: 03-05-2019 Patient encounter procedure AMANUEL DIGGS Facility:[id number] Procedures Date Procedure Procedure Detail Performing Clinician Start: 05-20-2025 Hemoglobin glycosylated a1c Ricardo Jones MD Work Phone: Start: 12-04-2024 [facility] MICROALB CREAT R ATIO [facility] Ricardo Jones MD Work Phone: Start: 11-19-2024 Hemoglobin glycosylated a1c Ricardo Jones MD Work Phone: Start: 07-24-2024 MHPT PSA, DIAGNOSTIC Ge neric External Data Provider Start: 03-13-[address] MODESTA FOX Comment on above: Performed By: #### P SAD #### [facility] [address] [place] [address] Dr. Deepa Barros Start: 05-08-2018 Cystourethroscopy wi dilation of urethral stricture Elvis FOX Start: 07-25-2015 Colonoscopy Generic Pr ovider Start: 08-15-2010 Ultrasonography guid ed transrectal cryoablation of prostate Elvis FOX Brachytherapy Elvis FOX Esophageal hiatus he rnia repair Elvis FOX Plan of Treatment Date Care Activity Detail Author Start: 06-11-2026 Glaucoma screening Diabetes: R etinopathy Screening [facility] Start: 01-03-2026 End: 01-03-2026 Patient encounter procedure 01/03/2026 9:00 AM EST Office Visit [facility] [address] [facility] [address] [place] [id number] Ricardo Jones MD [address] [place] [address] [place] [address] [facility] Start: 12-04-2025 Urine screening for protein Diabetes: Urine Protein Screening [facility] Start: 08-23-2025 ambulatory Ambulatory Facility:[facility] Start: 08-20-2025 Hemoglobin A1c measurement Diabetes: Hemoglobin A1C [facility] Start: 07-26-2025 Influenza vaccination Influenza Vacc ine (#1) [facility] Start: 07-25-2025 Screening for malign ant neoplasm of colon [facility] Start: 07-01-2025 End: 07-01-2025 Patient encounter procedure 07/01/2025 9:00 AM EDT Office Visit [facility] [address] [facility] [address] [place] [address] Ricardo Jones MD [address] [facility] [address] [place] [address] [facility] Start: 05-20-2025 End: 05-20-2025 Patient encounter procedure [facility] Comment on above: Arrived Start: 02-17-2025 Hemoglobin A1c measurement Diabetes: Hemoglobin A1C [facility] Start: 11-19-2024 End: 11-19-2025 Comprehensive metabolic 2000 panel - Serum or Plasma Comprehensive metabolic panel Lab Routine 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) Benign essential hypertension (CMS/HCC) Expected: 11/19/2024 (Approximate), Expires: 11/19/2025 [facility] Work Phone: Comment on above: Expected: 11/19/2024 (Approximate), Expires: 11/19/2025 Start: 11-19-2024 End: 11-19-2025 Lipid 1996 panel - Serum or Plasma Lipid panel Lab Routine Mixed hyperlipidemia (CMS/HCC) Expected: 11/19/2024 (Approximate), Expires: 11/19/2025 [facility] Comment on above: Expected: 11/19/2024 (Approximate), Expires: 11/19/2025 Start: 11-19-2024 End: 11-19-2025 TSH W/REFLEX TO FT4 TSH W/REFLEX TO FT4 Lab Routine 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) Supraventricular premature beats Expected: 11/19/2024 (Approximate), Expires: 11/19/2025 [facility] Comment on above: Expected: 11/19/2024 (Approximate), Expires: 11/19/2025 Start: 11-19-2024 End: 11-19-2024 Patient encounter procedure 11/19/2024 9:00 AM EST Office Visit [facility] [address] [place] [address] [place] [address] Ricardo Jones MD [address] [place] [address] [place] [address] Arrived [facility] Comment on above: Arrived Start: 10-23-2024 Urine screening for protein Diabetes: Urine Protein Screening [facility] Start: 10-16-2024 End: 10-16-2024 Patient encounter procedure 10/16/2024 8:30 AM EST Office Visit [facility] [address] [place] [address] [place] [address] Ricardo Jones MD [address] [facility] [address] [place] [address] [facility] Start: 07-26-2024 Influenza vaccination Influenza Vacc ine (#1) [facility] Start: 07-23-2024 Hemoglobin A1c measurement Diabetes: Hemoglobin A1C [facility] Start: 1950 Screening for malign ant neoplasm of colon [facility] Microalbumin/Creatin ine panel in random Urine Microalbumin / creatinine urine ratio Lab Routine 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) Ordered: 11/19/2024 [facility] Comment on above: Ordered: 11/19/2024 Immunizations Immunization Date Immunization Notes Care Provider Fa cility 11-19-2024 influenza virus vacc ine, unspecified formulation Marcela Sotelo [facility] 11-19-2024 Influenza, High-dose Seasonal, Quadrivalent, Preservative Free Ricardo Jones MD Work Phone: [facility] 10-23-2023 influenza virus vacc ine, unspecified formulation Generic Provider [facility] 10-23-2023 Influenza, High-dose Seasonal, Quadrivalent, Preservative Free Generic Provider [facility] 12-11-2022 SARS-CoV-2 (COVID-19 ) [id number] Elvis IMVU [facility] 09-14-2022 influenza virus vacc ine, unspecified formulation Elvis IMV[employer] [facility] 09-14-2022 Influenza, High-dose Seasonal, Quadrivalent, Preservative Free Generic Provider [facility] 09-21-2021 influenza virus vacc ine, unspecified formulation Elvis IMV[employer] [facility] 09-21-2021 influenza, high dose seasonal, preservative-free Generic Provider [facility] 08-25-2021 SARS-CoV-2 (COVID-19 ) mRNA BNT-162b2 vax Elvis IMVU [facility] Comment on above: Result Comment: 2023: [id number] 01-27-2021 SARS-CoV-2 (COVID-19 ) mRNA-1273 vaccine [employer] [facility] 01-06-2021 SARS-CoV-2 (COVID-19 ) mRNA-1273 vaccine [employer] [facility] 10-04-2020 influenza virus vacc ine, unspecified formulation Elvis IMVU [facility] 10-04-2020 Influenza, High-dose Seasonal, Quadrivalent, Preservative Free Generic Provider [facility] 08-31-2020 pneumococcal conjuga te vaccine, 13 valent Generic Provider [facility] 08-31-2020 zoster vaccine recombinant Generic Provider [facility] 12-26-2019 influenza virus vacc ine, unspecified formulation Elvis IMV[employer] [facility] 09-08-2018 influenza virus vacc ine, unspecified formulation Elvis FOX [facility] 08-11-2018 pneumococcal polysaccharide vaccine, 23 valent Generic Provider [facility] Payers Date Payer Category Payer Unknown [employer] [id number] 2021-Present [address] [place] [address] [id number] 2020 Private Health Insurance [id number] 2017 Self-pay 2016 Medicare [id number] 1959 Medicare [id number] 1959 Unknown [id number] 1959 Unknown [id number] 1951 Unknown [id number] 56 1951 Unknown [id number] 1951 Unknown [id number] 259 1951 Unknown [id number] 259 1951 Unknown [id number] 259 1951 Unknown [id number] 27 1951 Unknown [id number] 27 1951 Unknown [id number] 27 Unknown [id number] 31 Social History Date Type Detail Facility Start: 03-03-2021 Tobacco smoking status Ex-smoker (fi nding) [facility] Start: 08-19-2023 End: 05-20-2025 Sex Assigned At Male [facility] [place] [facility] Start: 08-24-2024 End: 06-10-2025 Tobacco smoking status Never [facility] Start: 05-02-2023 Tobacco smoking stat [facility] Never smoked tobacco [facility] Start: 05-02-2023 Tobacco use and exposure Smoke less tobacco non-user [facility] Start: 04-22-2024 End: 07-01-2025 Alcoholic beverage intake Lifetime non-drinker (finding) [facility] Start: 08-19-2023 End: 05-20-2025 History of Social function [facility] Within [...] at Not on file [facility] Sexual Orientation [facility] Start: 06-10-2019 Sex Male (finding) [facility] Functional Status Date Assessment Result Facility 05-20-2025 Patient Health Quest ionnaire 2 item (PHQ-2) [Reported] [facility] 08-24-2024 Functional Status N/A [facility] [place] Clinical Notes 04-13-2022 to 07-01-2025 Ricardo Jones MD - 07/01/2025 9:00 AM EDTRicardo Jones MD - 05/20/2025 8:30 AM EDTTelephone Encounter - DEJON Guallpa - 11/30/2024 11:27 AM Tori Jones MD - 11/19/2024 9:00 AM EST Note Date & Type Note Facility 07-01-2025 History of Presen t illness Narrative Images from the original note were not included. Subjective Patient ID: David Gifford is a 75 y.o. male who presents for Anxiety. Pt is here for a 6 week follow up for anxiety , he was given Cymbalta to start. Pt states medication is doing good for him Anxiety Current Outpatient Medications on File Prior to Visit Medication Sig Dispense Refill albuterol HFA 90 mcg/act inhaler Inhale 2 puffs every 6 (six) hours if needed. ALPRAZolam (Xanax) 0.5 MG tablet Take 1 tablet (0.5 mg) by mouth 3 (three) times a day as needed for anxiety 30 tablet 2 atorvastatin (Lipitor) 40 MG tablet Take 1 tablet (40 mg) by mouth 1 (one) time each day at the same time 90 tablet 3 Blood Glucose Monitoring Suppl (D-Care Glucometer) w/Device kit TEST BLOOD SUGARS TWO TIMESA DAY bid (before breakfast and supper) for 90 days DULoxetine (Cymbalta) [address] capsule Take 1 capsule (30 mg) by mouth in the morning and 1 capsule (30 mg) before bedtime. Do not crush or chew. 60 capsule 11 gabapentin (Neurontin) 300 MG capsule Take 1 [...] (50 mg) before bedtime. 180 tablet 2 metoprolol succinate XL (Toprol-XL) 25 MG 24 hr tablet Take 1 tablet (25 mg) by mouth Daily 90 tablet 3 [DISCONTINUED] traMADol (Ultram) 50 MG tablet Take 1 tablet (50 mg) by mouth every 6 (six) hours if needed for severe pain 90 tablet 0 No current facility-administered medications on file prior to visit. I have reviewed and reconciled the history and medication list with the patient today. Allergies Allergen Reactions Penicillin G Unknown Sulfa Antibiotics Other Reaction(s): Hives, Rash Social History Tobacco Use Smoking status: Never Smokeless tobacco: Never Substance Use Topics Alcohol use: Never Family History Problem Relation Name Age of Onset Heart disease Mother Diabetes Mother Past Medical History: Diagnosis Date Benign essential hypertension 05/02/2023 Degeneration of lumbar or lumbosacral intervertebral disc 05/02/2023 DM type 2 with diabetic peripheral neuropathy (HCC) 05/02/2023 Hiatal hernia 05/02/2023 Malignant neoplasm of prostate (HCC) 05/02/2023 Mild intermittent asthma (HCC) 05/02/2023 Mixed hyperlipidemia 05/02/2023 Pityriasis versicolor 05/02/2023 Stage 2 chronic kidney disease 05/02/2023 Supraventricular premature beats 05/02/2023 History reviewed. No pertinent surgical history. Visit Vitals BP 134/84 Pulse 76 Ht 5' 5.5 Wt 210 lb SpO2 96% BMI 34.41 kg/m Smoking Status Never BSA 2.1 m Review of Systems Objective Physical Exam Constitutional: General: He is not [...] Content: Thought content normal. Judgment: Judgment normal. Assessment/Plan Diagnoses and all orders for this visit: Generalized anxiety disorder - Patient was previously seen for this problem. Interventions discussed at that prior visit have improved this problem significantly. Please seen that office visit for details. Degeneration of intervertebral disc of lumbosacral region with discogenic back pain - traMADol (Ultram) 50 MG tablet; Take 1 tablet (50 mg) by mouth every 6 (six) hours if needed for severe pain - Medication choice and dosage is appropriate for patient's current medical conditions. Patient will continue to be required to be seen in our office at least every three months for monitoring. At each follow up visit I will reassess the patient's need for the medication. Patient is to have this medication prescribed only through this office. Failure to follow the rules and regulations will result in tapering and discontinuation of medications if applicable. Patient verbalized understanding. OARRS Report was reviewed for this patient. Follow up in about 6 months (around 01/01/2026) for Wellness. documented in this encounter [facility] 06-10-2025 Hospital Discharg e instructions Patient Education 06/10/2025 09:57:48 Urethral Stricture Urethral Stricture Urethral stricture is when the tube that drains pee (urine) from the bladder out of the body (urethra) becomes too narrow. The urethra can become narrow because of scar tissue, infection, surgery, or an injury. This can make it difficult to pee (urinate). In females, the urethra opens above the vaginal opening. In males, the urethra opens at the tip of the penis, and the urethra is much longer than it is in females. Because of the length of the male urethra, urethral stricture is much more common in males. What are the causes? In males and females, common causes of urethral stricture include: Urinary tract infection (UTI). Sexually transmitted infection (STI). Using a soft tube in the urethra to drain pee from the bladder (urinary catheter). Urinary tract surgery. In males, common causes of urethral stricture include: A severe injury to the pelvis. Prostate surgery. Injury to the penis. In many cases, the cause of urethral stricture is not known. What increases the risk? You are more likely to develop this condition if you: Are male. Males who have had prostate surgery are at risk of developing this condition. Use a urinary catheter. Have had urinary tract surgery. What are the signs or symptoms? The main symptom of this condition is trouble peeing. This may cause decreased pee flow, dribbling, or spraying of pee. Other symptom of this condition may include: Frequent UTIs. Blood in the pee. Pain when peeing. Swelling of the penis in males. Not being able to pee. How is this diagnosed? This condition may be diagnosed based on: Your medical history and a physical exam. Tests of your pee to check for infection or bleeding. X-rays. Ultrasound. Retrograde urethrogram. With this test, a dye is injected into the urethra and then an X-ray is taken. Urethroscopy. This is when a thin tube with a light and camera on the end (urethroscope) is used to look at the urethra. A CT scan or MRI. How is this treated? This condition is treated with surgery or other procedures. The type of surgery that you have depends on the severity of your condition. You may have: Urethral dilation. In this procedure, the narrow part of the urethra is stretched open (dilated) with dilating instruments or a small balloon. Urethrotomy. In this procedure, a urethroscope is placed into the urethra, and the narrow part of the urethra is cut open with a surgical blade or laser inserted through the urethroscope. Urethroplasty. In this procedure, an incision is made in the urethra and the narrow part is removed. Then, the urethra is reconstructed. Follow these instructions at home: Take esxg-ydc-rsazmte and prescription medicines only as told by your health care provider. If you were prescribed antibiotics, take them as told by your provider. Do not stop using the antibiotic even if you start to feel better. Drink enough fluid to keep your pee pale yellow. Keep all follow-up visits. Your provider will check your healing and adjust your treatment plan as needed. Contact a health care provider if: You have frequent peeing or you are only peeing small amounts often. You feel the need to pee urgently. You have pain or burning when you pee. Your pee smells bad or unusual. Your pee is bloody or cloudy. You have pain in your lower abdomen or back. Your genital area is swollen, bruised, or discolored. This includes: ?The penis, scrotum, and inner thighs for males. ?The outer genital organs (vulva) and inner thighs for females. You have a fever. You develop swelling in your legs. Get help right away if: You cannot pee. You have trouble breathing. These symptoms may be an emergency. Get help right away. Call 911. Do not wait to see if the symptoms will go away. Do not drive yourself to the hospital. This information is not intended to replace advice given to you by your health care provider. Make sure you discuss any questions you have with your health care provider. Document Revised: 09/05/2023 Document Reviewed: 09/05/2023 [employer] Patient Education 2023 [employer]. 06/10/2025 09:57:14 Clean Intermittent Catheterization, Female Clean Intermittent Catheterization, Female Clean intermittent catheterization (CIC) is a procedure to drain pee (urine) from the bladder by placing a soft tube (catheter) into the bladder though the urethra. The urethra is a tube in the body that carries pee from the bladder out of the body. CIC reduces the risk of infection and other problems that may arise when pee is not completely emptied from the bladder. CIC may be done when: You cannot completely empty your bladder on your own. This may be due to a blockage in the bladder or urethra. Your bladder leaks pee. This may happen when the muscles or nerves near the bladder are not working normally, and the bladder overflows. Your health care provider will show you how to do the procedure. You will also be given the supplies you need to do the procedure. Supplies needed Germ-free (sterile), water-based lubricant. A container for pee collection. You may also use the toilet to dispose of pee from the catheter. A catheter. Your provider will determine the best size for you. ?Use this catheter size: Clean gloves. Soap and water. Clean washcloth and towel. How to perform this procedure: Most people need CIC at least 4 times per day to completely empty the bladder. Your provider will tell you how often you should perform CIC. Number of times per day to perform CIC: To perform CIC, follow these steps: 1.Wash your hands with soap and water for 20 seconds. If soap and water are not available, use hand sewing machine operator floorperson. 2.Prepare the supplies that you will use during the procedure. Open the catheter package and lubricant. 3.Get in a comfortable position. It may be helpful to use a handheld mirror to look at the opening of your urethra. Possible positions include: Sitting on a toilet, a chair, or the edge of a bed. Standing next to a toilet with one foot on the toilet rim. Lying down with your head raised on pillows and your knees pointing to the ceiling. You may wish to place a waterproof mat or pad under you. 4.If you are using a pee collection container, position it between your legs. 5.Pee, if you are able. 6.Put on gloves. 7.Apply lubricant to about 2 inches (5 cm) of the tip of the catheter. 8.Set the catheter down on a clean, dry surface within reach. 9.Gently spread the folds of skin around your vagina (labia) with your non-dominant hand. For example, if you are right-handed, use your left hand to do this. With the other hand, clean the urethral opening with a washcloth and warm, soapy water, wiping from front to back. Dry the area completely with a towel. 10.While keeping your labia spread apart, slowly insert the lubricated catheter straight into your urethra until pee flows freely. This is usually 2 3 inches (5 8 cm). 11.When pee starts to flow freely, insert the catheter 1 inch (3 cm) more. Allow pee to drain into the toilet or the pee collection container. 12.When pee stops flowing, slowly remove the catheter. 13.Note the color, amount, and odor of the pee. 14.Measure your pee and note the amount, if told by your provider. 15.Discard the pee in the toilet. 16.Wash your genital area with soap and water. Wipe from front to back. 17.If you are using a single-use catheter, discard the catheter and supplies. 18.Wash your hands with soap and water. 19.If you are using a reusable catheter, follow package instructions about how to clean the catheter after each use. What are the risks? The provider will talk with you about risks. These may include: Infection. Injury to the urethra. Irritation of the urethra. How often should I do this procedure? Do CIC to empty your bladder every 4 6 hours or as often as told by your provider. If you have symptoms of too much pee in your bladder (overdistension) and you are not able to pee, perform CIC. Symptoms of overdistension may include: ?Restlessness. ?Sweating or chills. ?Headache. ?Flushed or pale skin. ?Bloated lower abdomen. Follow these instructions at home: General instructions Drink enough fluid to keep your pee pale yellow. Throw away a catheter when it becomes dry, brittle, or cloudy. This usually happens after you use the catheter for 1 week. Avoid caffeine. Caffeine may make you need to pee more frequently and more urgently. When traveling, bring extra supplies with you in case of delays. Keep supplies with you in a place that you can access easily. If traveling by plane: ?Make sure that the lubricant in your carry-on bag is less than 3.4 ounces (100 mL). ?Use a single-use catheter. It may be difficult to clean a reusable catheter in a small bathroom. Take btzb-cqs-lwzzsve and prescription medicines only as told by your provider. Contact a health care provider if: You have problems doing CIC. You have pee leaking around the catheter during CIC. You have: ?Dark or cloudy pee. ?Blood in your pee or in your catheter. ?A change in the smell of your pee or discharge. ?A burning feeling while you pee. You vomit or feel you may vomit. You have pain in your abdomen, your back, or your sides below your ribs. You have swelling or redness around the opening of your urethra. You develop a rash or sores on your skin. Get help right away if: You have a fever. You have symptoms that do not go away after 3 days. You have symptoms that suddenly get worse. You have severe pain. You start passing little pee, or little pee drains from your bladder. This information is not intended to replace advice given to you by your health care provider. Make sure you discuss any questions you have with your health care provider. Document Revised: 07/08/2023 Document Reviewed: 07/08/2023 [employer] Patient Education 2023 [employer]. Follow Up Care 06/01/2025 13:48:43 With:RUDDY HUTCHINSON, Elvis Rivera, URL Address: [facility] [address] [place] [phone]- When: Unknown Comments:as scheduled [facility] 06-10-2025 Note Patient Education Urology Urethral Stricture Urethral stricture is when the tube that drains pee (urine) from the bladder out of the body (urethra) becomes too narrow. The urethra can become narrow because of scar tissue, infection, surgery, or an injury. This can make it difficult to pee (urinate). In females, the urethra opens above the vaginal opening. In males, the urethra opens at the tip of the penis, and the urethra is much longer than it is in females. Because of the length of the male urethra, urethral stricture is much more common in males. What are the causes? In males and females, common causes of urethral stricture include: ??? Urinary tract infection (UTI). ??? Sexually transmitted infection (STI). ??? Using a soft tube in the urethra to drain pee from the bladder (urinary catheter). ??? Urinary tract surgery. In males, common causes of urethral stricture include: ??? A severe injury to the pelvis. ??? Prostate surgery. ??? Injury to the penis. In many cases, the cause of urethral stricture is not known. What increases the risk? You are more likely to develop this condition if you: ??? Are male. Males who have had prostate surgery are at risk of developing this condition. ??? Use a urinary catheter. ??? Have had urinary tract surgery. What are the signs or symptoms? The main symptom of this condition is trouble peeing. This may cause decreased pee flow, dribbling, or spraying of pee. Other symptom of this condition may include: ??? Frequent UTIs. ??? Blood in the pee. ??? Pain when peeing. ??? Swelling of the penis in males. ??? Not being able to pee. How is this diagnosed? This condition may be diagnosed based on: ??? Your medical history and a physical exam. ??? Tests of your pee to check for infection or bleeding. ??? X-rays. ??? Ultrasound. ??? Retrograde urethrogram. With this test, a dye is injected into the urethra and then an X-ray is taken. ??? Urethroscopy. This is when a thin tube with a light and camera on the end (urethroscope) is used to look at the urethra. ??? A CT scan or MRI. How is this treated? This condition is treated with surgery or other procedures. The type of surgery that you have depends on the severity of your condition. You may have: ??? Urethral dilation. In this procedure, the narrow part of the urethra is stretched open (dilated) with dilating instruments or a small balloon. ??? Urethrotomy. In this procedure, a urethroscope is placed into the urethra, and the narrow part of the urethra is cut open with a surgical blade or laser inserted through the urethroscope. ??? Urethroplasty. In this procedure, an incision is made in the urethra and the narrow part is removed. Then, the urethra is reconstructed. Follow these instructions at home: ??? Take aavy-hax-vdxzfnz and prescription medicines only as told by your health care provider. ??? If you were prescribed antibiotics, take them as told by your provider. Do not stop using the antibiotic even if you start to feel better. ??? Drink enough fluid to keep your pee pale yellow. ??? Keep all follow-up visits. Your provider will check your healing and adjust your treatment plan as needed. Contact a health care provider if: ??? You have frequent peeing or you are only peeing small amounts often. ??? You feel the need to pee urgently. ??? You have pain or burning when you pee. ??? Your pee smells bad or unusual. ??? Your pee is bloody or cloudy. ??? You have pain in your lower abdomen or back. ??? Your genital area is swollen, bruised, or discolored. This includes: ? The penis, scrotum, and inner thighs for males. ? The outer genital organs (vulva) and inner thighs for females. ??? You have a fever. ??? You develop swelling in your legs. Get help right away if: ??? You cannot pee. ??? You have trouble breathing. These symptoms may be an emergency. Get help right away. Call 911. ??? Do not wait to see if the symptoms will go away. ??? Do not drive yourself to the hospital. This information is not intended to replace advice given to you by your health care provider. Make sure you discuss any questions you have with your health care provider. Document Revised: 09/05/2023 Document Reviewed: 09/05/2023 [employer] Patient Education ? 2023 In[employer]3 Digital. Clean Intermittent Catheterization, Female Clean intermittent catheterization (CIC) is a procedure to drain pee (urine) from the bladder by placing a soft tube (catheter) into the bladder though the urethra. The urethra is a tube in the body that carries pee from the bladder out of the body. CIC reduces the risk of infection and other problems that may arise when pee is not completely emptied from the bladder. CIC may be done when: ??? You cannot completely empty your bladder on your own. This may be due to a blockage in the bladder or urethra. ??? Your bladder leaks (more content not included)... [facility] 05-20-2025 History of Presen t illness Narrative Images from the original note were not included. HPI Results Additional comments: Labs 11/2024 Med Refill Additional comments: ATORVASTATIN,GLIMEPIRIDE,METOPR OLOL,GABAPENTIN--[facility] Last edited by Tracy Robles LPN on 05/20/2025 8:46 AM. Subjective Patient ID: David Gifford is a 75 y.o. male who presents for Diabetes, Results (Labs 11/2024), Med Refill (ATORVASTATIN,GLIMEPIRIDE,METOP ROLOL,GABAPENTIN--[facility]), and Panic Attack. Diabetes Mellitus Patient presents for follow up of diabetes. Current symptoms include: 1 episode of hypoglycemia. Patient denies foot ulcerations, , nausea, polydipsia, polyuria, visual disturbances, vomiting, and weight loss. Evaluation to date has included: fasting blood sugar, fasting lipid panel, hemoglobin A1C, and microalbuminuria. Home sugars: BGs range between 120 and 150 Hypertension Patient is here for follow-up of elevated blood pressure. Cardiac symptoms: none. Patient denies chest pain, claudication, irregular heart beat, lower extremity edema, near-syncope, orthopnea, palpitations, paroxysmal nocturnal dyspnea, syncope, and tachypnea. Cardiovascular risk factors: advanced age (older than 55 for men, 65 for women), diabetes mellitus, hypertension, male gender, and obesity (BMI >= 30 kg/m2). PT STATES HE HAS BEEN HAVING PANIC ATTACKS has had increased stress with son casing increased anxiety Diabetes Pertinent negatives for diabetes include no chest pain. Med Refill Pertinent negatives include no chest pain. Hypertension Pertinent negatives include no chest pain or shortness of breath. Over the past 2 weeks, how often have you been bothered by any of the following problems? Little interest or pleasure in doing things: Not at all Feeling down, depressed, or hopeless: Not at all Patient Health Questionnaire-2 Score: 0 Current Outpatient Medications on File Prior to Visit Medication Sig Dispense Refill albuterol HFA 90 mcg/act inhaler Inhale 2 puffs every 6 (six) hours if needed. Blood Glucose Monitoring Suppl (D-Cubie Glucometer) w/Device kit TEST BLOOD SUGARS TWO TIMESA DAY bid (before breakfast and supper) for 90 days losartan (Cozaar) 50 MG tablet Take 1 tablet (50 mg) by mouth in the morning and 1 tablet (50 mg) before bedtime. 180 tablet 2 [DISCONTINUED] atorvastatin (Lipitor) 40 MG tablet Take 1 tablet (40 mg) by mouth 1 (one) time each day at the same time 90 tablet 3 [DISCONTINUED] gabapentin (Neurontin) 300 MG capsule Take 1 capsule (300 mg) by mouth in the morning and 1 capsule (300 mg) in the evening and 1 capsule (300 mg) before bedtime. 270 capsule 3 [DISCONTINUED] glimepiride (Amaryl) 4 MG tablet Take 1 tablet (4 mg) by mouth in the morning. Take before meals. 90 tablet 3 [DISCONTINUED] metoprolol succinate XL (Toprol-XL) 25 MG 24 hr tablet Take 1 tablet (25 mg) by mouth Daily 90 tablet 3 No current facility-administered medications on file prior to visit. I have reviewed and reconciled the history and medication list with the patient today. Allergies Allergen Reactions Penicillin G Unknown Sulfa Antibiotics Other Reaction(s): Hives, Rash Social History Tobacco Use Smoking status: Never Smokeless tobacco: Never Substance Use Topics Alcohol use: Never Family History Problem Relation Name Age of Onset Heart disease Mother Diabetes Mother Past Medical History: Diagnosis Date Benign essential hypertension 05/02/2023 Degeneration of lumbar or lumbosacral intervertebral disc 05/02/2023 DM type 2 with diabetic peripheral neuropathy (HCC) 05/02/2023 Hiatal hernia 05/02/2023 Malignant neoplasm of prostate (HCC) 05/02/2023 Mild intermittent asthma (HCC) 05/02/2023 Mixed hyperlipidemia 05/02/2023 Pityriasis versicolor 05/02/2023 Stage 2 chronic kidney disease 05/02/2023 Supraventricular premature beats 05/02/2023 History reviewed. No pertinent surgical history. Visit Vitals BP 136/70 Pulse 71 Ht 5' 5.5 Wt 212 lb SpO2 95% BMI 34.74 kg/m Smoking Status Never BSA 2.11 m Review of Systems Respiratory: Negative for shortness of breath. Cardiovascular: Negative for chest pain. Objective Physical Exam Constitutional: General: He is not in acute distress. Appearance: Normal appearance. Cardiovascular: Rate and Rhythm: Normal rate and regular rhythm. Heart sounds: No murmur heard. Pulmonary: Effort: Pulmonary effort is normal. No respiratory distress. Breath sounds: No wheezing, rhonchi or rales. Abdominal: General: Abdomen is flat. Bowel sounds are normal. Palpations: Abdomen is soft. Musculoskeletal: Right lower leg: No edema. Left lower leg: No edema. Neurological: Mental Status: He is alert. Psychiatric: Mood and Affect: Mood normal. Thought Content: Thought content normal. Office Visit on 05/20/2025 Component Date Value Ref Range Status Hemoglobin A1C 05/20/2025 6.2 Final Clinisync Result Encounter on 12/04/2024 Component Date Value Ref Range Status MICROALBUMIN URINE RANDOM 12/04/2024 3.2 <=30.0 mg/dL Final CREATININE URINE RANDOM 12/04/2024 217.09 20.00 - 300.00 mg/dL Final MICROALBUM CREATININE RATIO UR 12/04/2024 14.7 0.0 - 29.9 mg/g Final Comment: NO MICROALBUMINURIA 0-29 MG/G CLINICAL MICROALBUMINURIA 30-300 MG/G MACROALBUMINURIA >300 MG/G SODIUM 12/04/2024 143 136 - 145 mmol/L Final POTASSIUM 12/04/2024 4.5 3.5 - 5.1 mmol/L Final CHLORIDE 12/04/2024 105 98 - 107 mmol/L Final CARBON DIOXIDE 12/04/2024 28.8 21.0 - 32.0 mmol/L Final ANION GAP 12/04/2024 13.7 Final GLUCOSE 12/04/2024 127 (H) 74 - 106 mg/dL Final BLOOD UREA NITROGEN 12/04/2024 10.0 7.0 - 18.0 mg/dL Final CREATININE 12/04/2024 1.48 (H) 0.70 - 1.30 mg/dL Final TBH EGFR-AF BAHAMIAN 12/04/2024 57 (L) >=60 mL/min/1.73m 2 Final TBH EGFR-NON AF BAHAMIAN 12/04/2024 47 (L) >=60 mL/min/1.73m 2 Final BUN CREATININE RATIO 12/04/2024 6.8 Final CALCIUM 12/04/2024 9.1 8.5 - 10.1 mg/dL Final BILIRUBIN TOTAL 12/04/2024 0.7 0.2 - 1.0 mg/dL Final ASPARTATE AMINO TRANSFERASE 12/04/2024 16 15 - 37 U/L Final ALANINE AMINOTRANSFERASE 12/04/2024 22 16 - 63 U/L Final ALKALINE PHOSPHATASE 12/04/2024 77 46 - 116 U/L Final TOTAL PROTEIN 12/04/2024 7.0 6.4 - 8.2 g/dL Final ALBUMIN LEVEL 12/04/2024 3.7 3.4 - 5.0 g/dL Final GLOBULIN 12/04/2024 3.3 g/dL Final ALBUMIN GLOBULIN RATIO 12/04/2024 1.1 Final TRIGLYCERIDES 12/04/2024 83 <=150 mg/dL Final CHOLESTEROL 12/04/2024 149 <=200 mg/dL Final HDL CHOLESTEROL 12/04/2024 55 40 - 60 mg/dL Final Comment: > or =60 mg/dl - LOW CARDIOVASCULAR RISK <40 mg/dl - HIGH CARDIOVASCULAR RISK LDL CHOLESTEROL CALCULATED 12/04/2024 77.4 mg/dL Final Comment: <100 mg/dl OPTIMAL 100-129 mg/dl NEAR OR ABOVE OPTIMAL 130-159 mg/dl BORDERLINE HIGH 160-189 mg/dl HIGH >190 mg/dl VERY HIGH VLDL CHOLESTEROL 12/04/2024 16.6 mg/dL Final CHOL HDL RATIO 12/04/2024 2.7 Final Comment: 3.3 - 4.4 LOW RISK 4.4 - 7.1 AVERAGE RISK 7.1 - 11.0 MODERATE RISK >11.0 HIGH RISK TSH 12/04/2024 2.268 0.358 - 3.740 uIU/mL Final Assessment/Plan Diagnoses and all orders for this visit: Type 2 diabetes mellitus with diabetic chronic kidney disease (HCC) - POCT Glycated hemoglobin, total - FSBS log shows good control, most recent A1C is at or near goal. Continue current treatment plan as previously outlined without changes. Malignant neoplasm of prostate (HCC) - The patient is seeing a medical insurance claims processor for this condition, treatment is deferred to that specialist. Correspondence from that specialist and any available testing were reviewed during today's visit. Chronic kidney disease, stage 3a (CMS-HCC) - Stable. Supraventricular premature beats - metoprolol succinate XL (Toprol-XL) 25 MG 24 hr tablet; Take 1 tablet (25 mg) by mouth Daily - EKG today was normal. DM type 2 with diabetic peripheral neuropathy (HCC) - glimepiride (Amaryl) 4 MG tablet; Take 1 tablet (4 mg) by mouth in the morning. Take before meals. - gabapentin (Neurontin) 300 MG capsule; Take 1 capsule (300 mg) by mouth in the morning and 1 capsule (300 mg) in the evening and 1 capsule (300 mg) before bedtime. Mixed hyperlipidemia - atorvastatin (Lipitor) 40 MG tablet; Take 1 tablet (40 mg) by mouth 1 (one) time each day at the same time Generalized anxiety disorder - DULoxetine (Cymbalta) [address] capsule; Take 1 capsule (30 mg) by mouth in the morning and 1 capsule (30 mg) before bedtime. Do not crush or chew. - ALPRAZolam (Xanax) 0.5 MG tablet; Take 1 tablet (0.5 mg) by mouth 3 (three) times a day as needed for anxiety - New diagnosis. Meds added above. Risks of Alprazolam discussed in detail. Follow up in about 6 weeks (around 07/01/2025) for F/U med changes. documented in this encounter [facility] 11-30-2024 Telephone encounter Note OARRS reviewed, Rx sent into patient's pharmacy. [facility] 11-30-2024 Miscellaneous Notes OARRS reviewed, Rx sent into patient's pharmacy. documented in this encounter [facility] 11-19-2024 History of Presen t illness Narrative [...] 90 tablet 3 Blood Glucose Monitoring Suppl (D-Care Glucometer) w/Device [...] apparent by direct observation Three Word Registration: Dat Hong, Zeke Clock Drawing: Normal Clock - 2 Three Word Recall: All 3 words correct - 3 Total Score (0-5 Points): 5 Pain Assessment Pain Score: 0 - No pain Advance Care Planning Do you have a living will?: Yes Do you have a medical power of civil rights attorney?: Yes Objective : BP 132/82 Pulse 81 [...] vaccination - Influenza, high-dose seasonal, quadrivalent, PF (BGW080) (Fluzone High Dose [place] 0.7mL dose) Follow up in about 6 months (around 05/20/2025) for DM- A1C. Orders Placed This Encounter Procedures Influenza, high-dose seasonal, quadrivalent, PF (NLJ649) (Fluzone High Dose [place] 0.7mL dose) POCT Glycated hemoglobin, total Electronically signed by Ricardo Jones MD on November 19, 2024 documented in this encounter [facility] 08-24-2024 Hospital Discharg e instructions Patient Education [...] if anything looks unusual. Males with a hcecqi-djvz-iyyfzx risk for skin cancer may want to see a speech language specialist (electrolysis investigator) for an annual body check. Where to find more information [place] [employer]: cancer.org Centers for Disease Control and Prevention: cdc.gov National Cancer [place]: cancer.gov Contact a health care provider if: [...] provider. Document Revised: 11/19/2023 Document Reviewed: 06/03/2023 [employer] Patient Education 2023 Ini3 Digital. Follow Up Care 08/19/2023 09:16:04 With:RUDDY HUTCHINSON, Elvis Rivera, URL Address: [address] [place], [place] [id number]- When: Unknown [facility] 08-24-2024 Note Patient Education Oncology Cancer Screening [...] if anything looks unusual. Males with a txdalw-nmwj-keepuh risk for skin cancer may want to see a speech language specialist (electrolysis investigator) for an annual body check. Where (more content not included)... [facility] 04-13-2022 Hospital Discharg e instructions Patient [...] who: Are older than age 65. Are -[place]. Are obese. Have a family history of [...] cells. Follow these instructions at home: Take hmxx-zap-qgfzrqs and prescription medicines only as told by [...] 11/11/2006 Document Revised: 10/24/2018 Document Reviewed: 07/22/2017 [employer] Patient Education 2020 In[employer] Digital. Follow Up Care 03/03/2021 09:30:24 With:Elvis FOX MD, URL Address: [address] [place], [place] [phone]- When:04/13/2023 Comments:with psa [facility] Evaluation + Plan note Future Appointments Appointment Date:05/31/2023 08:45:00 AM Scheduled Provider:Elvis FOX MD Location:[facility] Appointment Type:URO Office Visit Diagnostic Tests PendingPSA Free & Total 04/13/22 [facility] Evaluation + Plan note Future Appointments Appointment Date:08/23/2025 08:45:00 AM Scheduled Provider:Elvis FOX MD Location:[facility] Appointment Type:URO Office Visit Diagnostic Tests PendingPSA Total 08/24/24 [facility] Evaluation + Plan note Future Appointments Appointment Date:08/23/2025 08:45:00 AM Scheduled Provider:Elvis FOX MD Location:[facility] Appointment Type:URO Office Visit [facility] Evaluation note Diagnosis Degeneration of lumbar or [...] pain- Primary [facility] Diagnosis Type 2 diabetes mellitus with diabetic chronic kidney disease (HCC)- Primary Malignant neoplasm of prostate (HCC) Malignant neoplasm of prostate Chronic kidney disease, stage 3a (CMS-HCC) Supraventricular premature beats DM type 2 with diabetic peripheral neuropathy (HCC) Mixed hyperlipidemia Mixed hyperlipidemia Generalized anxiety disorder Generalized anxiety disorder [facility] Diagnosis Generalized anxiety disorder- Primary Generalized anxiety disorder Degeneration of intervertebral disc of lumbosacral region with discogenic back pain [facility] Narrative No data available for this section [facility] Progress note No data available for this section [facility] Summary Purpose Family History No Family History Records FoundNo Family History Records FoundNo Family History Records Found No data available for this section No data available for this section No [...] section and content) DATE CREATED AUTHOR 03/19/2019 [facility] [place] DATE CREATED AUTHOR AUTHOR'S ORGANIZ ATION 03/17/2022 [facility] DATE CREATED AUTHOR AUTHOR'S ORGANIZ ATION 07/27/2023 [facility] DATE CREATED AUTHOR AUTHOR'S ORGANIZ ATION 07/03/[address] [facility] DATE CREATED AUTHOR AUTHOR'S ORGANIZ ATION [facility] Care team informatio n (unrecognized section and content) 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 Specialty Start Date End Date Ricardo Jones MD [address] [place] [address] PCP - ACO Reach 04/18/23 Ricardo Jones MD [address] [place] [address] PCP - General Internal Medicine 05/13/23 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 Specialty Start Date End Date Ricardo Jones MD [address] [place] [address] PCP - ACO Reach 04/18/23 Ricardo Jones MD [address] [place] [address] PCP - General Internal Medicine 05/13/23 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 Specialty Start Date End Date Ricardo Jones MD [address] [place] [address] PCP - ACO Reach 04/18/23 Ricardo Jones MD [address] [place] [address] PCP - General Internal Medicine 05/13/23 [employer]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 Specialty Start Date End Date Ricardo Jones MD [address] [place] [address] PCP - ACO Reach 04/18/23 Ricardo Jones MD [address] [place] [address] PCP - General Internal Medicine 05/13/23 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 Specialty Start Date End Date Ricardo Jones MD [address] [place] [address] PCP - ACO Reach 04/18/23 Ricardo Jones MD [address] [place] [address] PCP - General Internal Medicine 05/13/23 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 Specialty Start Date End Date Ricardo Jones MD [address] [place] [address] PCP - ACO Reach 04/18/23 Ricardo Jones MD [address] [place] [address] PCP - General Internal Medicine 05/13/23 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 Specialty Start Date End Date Ricardo Jones MD [address] [place] [address] PCP - ACO Reach 04/18/23 Ricardo Jones MD [address] [place] [address] PCP - General Internal Medicine 05/13/23 Yuki Vanegas LPN [address] [place] [address] 02/12/25 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 Specialty Start Date End Date Ricardo Jones MD [address] [place] [address] PCP - ACO Reach 04/18/23 Ricardo Jones MD [address] [place] [address] PCP - General Internal Medicine 05/13/23 Yuki Vanegas LPN [address] [facility] [address] [place] [address] 02/12/25 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 Specialty Start Date End Date Ricardo Jones MD [address] [facility] [address] [place] [address] PCP - ACO Reach 04/18/23 Ricardo Jones MD [address] [facility] [address] [place] [address] PCP - General Internal Medicine 05/13/23 Yuki Vanegas LPN [address] [facility] [facility] [address] [place] [address] 02/12/25 Reason for Visit (unrecogniz ed section and content) Reason Onset Date Comments Med Refill 08/17/2024 Reason Comments Medicare Annual Wellness Visit Subsequen t Reason Onset Date Comments Med Refill 11/30/2024 Reason Comments Diabetes Results Labs 11/2024 Med Refill ATORVASTATIN,GLIMEPI RIDE,METOPROLOL,GABAPENTIN--[facility] Panic Attack Reason Comments Anxiety FOR RECORDS PERTAINING TO PATIENTS WHO ARE [...] BE BASED ON THE PRIMARY CLINICAL RECORDS. [employer] provides no warranty or guarantee of the accuracy or completeness of information in this document.
[2025-08-18 11:22] LABS: Prostate Specific Antigen Dx <0.13 ng/mL (<=4.00)
== END 2025-08-18 10:08 | disposition home or self-care (01) ==
LOC: LAB 10:13
PROVIDERS: PCP Internal Medicine; Visit Provider Urology
DX: N40.1 Benign prostatic hyperplasia with lower urinary tract symptoms (principal); Z85.46 Personal history of malignant neoplasm of prostate
CPT/HCPCS: 36415; 84153